=== PATIENT | male | born 1985 | race Caucasian/White ===

== ENCOUNTER 2018-09-09 11:41 | Emergency (ER) | payer SELFPAY ==
[2018-09-09] MEDS ORDERED: AMOXICILLIN TR/POT CLAVULANATE 500-125 MG TAB PO ONE (13:17)
[2018-09-09] MEDS ORDERED: AMOXICILLIN TRIHYD 250 MG CAPSULE PO ONE (13:18)
[2018-09-09] MEDS ORDERED: ACETAMINOPHEN 325 MG TABLET PO ONE (13:18)
--- NOTE | 2018-09-09 13:21 | ER Document Report ---
ED Animal Bite - General Chief Complaint: Dog Bite Stated Complaint: DOG BITE Time Seen by Provider: 09/09/18 12:49 Mode of Arrival: Ambulatory Information source: Patient Notes: 33-year-old male presented to ED for complaint of a dog bite about 30 minutes before coming to the emergency room. 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 He states another dog came up and acted like he wanted biting to but he only has one bite danya on his right calf. He states the dog hair spring cutter told him is sorry and went into the house did not tell him whether the shots were up-to-date or not. Bleeding is under control. Patient states that his tetanus was last in January 2018. Patient states he is living in a motel just doing jobs. He is alert oriented respirations regular and unlabored speaking in full sentences. He states his only past medical history is depression. He states he is new to the area and does not have a primary care doctor as yet. TRAVEL OUTSIDE OF THE [place] IN LAST 30 DAYS: No - HPI Location of injury: Other - Right calf Severity of injury: Bitten Onset: Just prior to arrival Quality of pain: Sharp Pain Level: 5 Severity: Severe Context of attack: "Unprovoked" attack, Entered animal's domain Type of animal: Dog Appearance of animal: Appeared ill Animal's immunizations: Unknown Animal control form completed: Yes - Related Data Allergies/Adverse Reactions: No Known Allergies Allergy (Unverified 09/09/18 11:42) Past Medical History - General Information source: Patient - Social History Smoking Status: Current Every Day Smoker Cigarette use (# per day): Yes - Half pack a day Chew tobacco use (# tins/day): No Smoking Education Provided: Yes - 4 minutes Frequency of alcohol use: None Drug Abuse: None Occupation: Odd jobs Lives with: Alone - [place] Family History: Reviewed & Not Pertinent Patient has suicidal ideation: No Patient has homicidal ideation: No - Past Medical History Cardiac Medical History: Reports: None Pulmonary Medical History: Reports: None EENT Medical History: Reports: None Neurological Medical History: Reports: None Endocrine Medical History: Reports: None Renal/ Medical History: Reports: None Malignancy Medical History: Reports None GI Medical History: Reports: None Musculoskeletal Medical History: Reports None Skin Medical History: Reports None Psychiatric Medical History: Reports: Hx Depression Traumatic Medical History: Reports: None Infectious Medical History: Reports: None Surgical Hx: Negative Past Surgical History: Reports: None - Immunizations Immunizations up to date: Yes Hx Diphtheria, Pertussis, Tetanus Vaccination: Yes - Patient states January 2018 Review of Systems - Review of Systems Constitutional: No symptoms reported EENT: No symptoms reported Cardiovascular: No symptoms reported Respiratory: No symptoms reported Gastrointestinal: No symptoms reported Genitourinary: No symptoms reported Male Genitourinary: No symptoms reported Musculoskeletal: No symptoms reported Skin: Other - Dog bite to the right calf Hematologic/Lymphatic: No symptoms reported Neurological/Psychological: No symptoms reported -: Yes All other systems reviewed and negative Physical Exam - Vital signs Vitals: Temp Pulse Resp BP Pulse Ox 97.5 F 91 17 113/63 96 09/09/18 11:45 09/09/18 11:45 09/09/18 11:45 09/09/18 11:45 09/09/18 11:45 Interpretation: Normal - General General appearance: Appears well, Alert - HEENT Head: Normocephalic, Atraumatic Eyes: Normal Pupils: PERRL - Respiratory Respiratory status: No respiratory distress Chest status: Nontender Breath sounds: Normal Chest palpation: Normal - Cardiovascular Rhythm: Regular Heart sounds: Normal auscultation Murmur: No - Abdominal Inspection: Normal Distension: No distension Bowel sounds: Normal Tenderness: Nontender Organomegaly: No organomegaly - Back Back: Normal, Nontender - Extremities General upper extremity: Normal inspection, Nontender, Normal color, Normal ROM, Normal temperature General lower extremity: Normal color, Normal ROM, Normal temperature, Normal weight bearing. No: Ruby's sign Calf: Tender, Abrasion, Laceration - Mild dog bite to the right calf no active bleeding. No: Deformity, Ecchymosis, Instability, Unable to bear weight - Neurological Neuro grossly intact: Yes Cognition: Normal Orientation: AAOx4 [place] Coma Scale Eye Opening: Spontaneous [place] Coma Scale Verbal: Oriented [place] Coma Scale Motor: Obeys Commands Kaj[place] Coma Scale Total: 15 Speech: Normal Motor strength normal: LUE, RUE, LLE, RLE Sensory: Normal - Psychological Associated symptoms: Normal affect, Normal mood - Skin Skin Temperature: Warm Skin Moisture: Dry Skin Color: Normal Course - Re-evaluation Re-evalutation: 09/09/18 13:30 Patient was treated with Augmentin. Patient states his last tetanus was in January of 2018 he was treated with Tylenol and Augmentin in the emergency room discharged home with a prescription for Augmentin. He stated he would rather Tylenol and ibuprofen. Patient was given instructions on cleaning the bite with soap and water and applying bacitracin and Band-Aid. This was done while in the emergency room. Patient was discharged home with instructions to follow-up with animal control. - Vital Signs Vital signs: Temp Pulse Resp BP Pulse Ox 98.2 F 74 16 121/61 100 09/09/18 13:37 09/09/18 13:37 09/09/18 13:37 09/09/18 13:37 09/09/18 13:37 Discharge - Discharge Clinical Impression: Dog bite of right calf Qualifiers: Encounter type: initial encounter Qualified Code(s): S81.851A - Open bite, right lower leg, initial encounter Condition: Stable Disposition: HOME, SELF-CARE Instructions: Family Physicians / Practices Additional Instructions: Animal Bites Animal bites are often heavily contaminated with bacteria. In spite of thorough cleansing and proper treatment, these wounds frequently become infected. Bite wounds of the hands are especially prone to complications. Bites are dressed, if possible. Large wounds may require suturing after internal cleansing. Because of infection risk, some large wounds must remain unstitched. Your doctor is trained to advise you on the best treatment for your bite. Call the doctor at once if the wound becomes red, swollen, warm, increasingly painful, or if it begins to drain. Danger signs also include red streaks up the involved extremity, swollen glands in the groin or under the arm, or fever and chills. The risk of rabies from domestic animals is very low. Bats, sick animals, and wild animals may expose you to rabies. The physician, or the health department, will inform you if you will need to receive the rabies vaccine. Augmentin Augmentin is a mixture of amoxicillin and clavulanate. Amoxicillin is a member of the penicillin family. It covers the germs likely to cause ear, bronchial, and urinary infections better than plain penicillin. The addition of clavulanate allows it to cover staph infections of the skin, as well as resistant cases of ear and sinus infections. Your physician has chosen Augmentin for you because of the special nature of your situation. Augmentin is best taken with meals. Nausea after taking the medication is rare, but can occur. Diarrhea can occur, particularly in small children. Vaginal yeast infections, and oral thrush in infants are also common. Contact your physician if these problems occur. Allergy to penicillins is common. If you have had an allergic reaction to any drug of the penicillin family, you should never take any other penicillin. Notify your doctor at once if you develop hives, shortness of breath, swelling, or faintness. Acetaminophen Acetaminophen may be taken for pain relief or fever control. It's much safer than aspirin, offering a wider range of "safe" dosages. It is safe during . Some brand names are Tylenol, Panadol, Datril, Anacin 3, Tempra, and Liquiprin. Acetaminophen can be repeated every four hours. The following are maximum recommended dosages: WEIGHT Dose Drops Elixir Chewable(80mg) (LBS.) drprs=droppers tsp=teaspoon 6 40 mg .4 ml (1/2) 6-11 80 mg .8 ml (full) 1/2 tsp 1 tab 12-16 120 mg 1 1/2 drprs 3/4 tsp 1 1/2 tabs 17-23 160 mg 2 drprs 1 tsp 2 tabs 24-30 240 mg 3 drprs 1 1/2 tsp 3 tabs 30-35 320 mg 2 tsp 4 tabs 36-41 360 mg 2 1/4 tsp 4 1/2 tabs 42-47 400 mg 2 1/2 tsp 5 tabs 48-53 480 mg 3 tsp 6 tabs 54-59 520 mg 3 1/4 tsp 6 1/2 tabs 60-64 560 mg 3 1/2 tsp 7 tabs 65-70 600 mg 3 3/4 tsp 7 1/2 tabs 71-76 640 mg 4 tsp 8 tabs 77-82 720 mg 4 1/2 tsp 9 tabs 83-88 800 mg 5 tsp 10 tabs >89 pounds or adults 650 mg to 900 mg Acetaminophen can be repeated every four hours. Maximum daily dose not to exceed 4000 mg. These maximum recommended dosages are slightly higher than the dosages written on the product container, but these dosages are very safe and well below the toxic dosage for acetaminophen. Ibuprofen Ibuprofen is an excellent, safe drug for pain control. In addition, it has potent antiinflammatory effects which are beneficial, especially in the treatment of injuries, arthritis, or tendonitis. It's best to take ibuprofen with food. Persons with ulcer disease or allergy to aspirin should notify their physician of this before taking ibuprofen. Take the medication exactly as prescribed. Don't take additional doses unless instructed to do so by your doctor. If you develop wheezing, shortness of breath, hives, faintness, stomach pain, vomiting, or dark black stools, return for re-evaluation at once. NON-SUTURED LACERATION: Your laceration did not require suturing. Some lacerations cannot be sutured because of increased infection risk, while others simply don't need stitches because they are shallow or very short. Your injury should be protected while it heals. Usually complete healing takes 10 to 14 days. Keep the dressing clean and dry, and change it every day. If you notice increasing pain, redness, swelling, drainage, or tender lumps in the armpit or groin above the injury, infection may be present. You should call the doctor at once. SOAP CLEANSING: Gently wash the wound daily using a mild soap (like Ivory, Phisoderm, Neutrogena). Use warm water, rubbing gently until all debris, ooze, and crusting have been washed from the wound. Allow to dry briefly (about 10 minutes) after cleaning. Repeat this cleansing at least three times a day for the first two days and then once or twice a day. ANTIBIOTIC OINTMENT PROTECTION: Your wounds are such that dressing them is not practical or optional. After cleansing, you should apply a thin coating of antibiotic ointment (Bacitracin, not Neosporin) to the wounds at least three times daily. This lessens infection risk, and may decrease the amount of scarring. Use a q-tip or dull butter knife, not your finger, to apply this ointment. Any debris or ooze which builds up in the ointment should be gently rubbed off with a sterile gauze pad. Harder crusting may need to be gently scrubbed off with a clean wash cloth with soap and warm water, perhaps applying a warm, wet wash cloth to the wound for ten minutes first. Development of redness, severe itching, or blistering may mean allergy to the ointment. See the doctor. FOLLOW-UP CARE: Please return in __3___ days for an infection check and dressing change. If you have been referred to another physician for follow-up care, call that physicians office for an appointment as you were instructed. If you experience a significant change in your laceration, or if you are concerned there may be an infection (swelling, redness, drainage, increasing tenderness, red streaks, tender lumps in the armpit or groin above the laceration, or fever), return to the Emergency Department immediately re-evaluation. Prescriptions: Amox Tr/Potassium Clavulanate [Augmentin 875-125 Tablet] 1 tab PO BID 10 Days tablet Forms: Smoking Cessation Education, Return to Work
[2018-09-09 13:39] VITALS: BP 121/61
== END 2018-09-09 13:37 | disposition home or self-care (01) ==
LOC: ER 11:41
DX: S81.851A Open bite, right lower leg, initial encounter (principal); W54.0XXA Bitten by dog, initial encounter; Y93.89 Activity, other specified; Y92.007 Garden or yard of unspecified non-institutional (private) residence as the place of occurrence of the external cause; Y99.0 Civilian activity done for income or pay; F17.210 Nicotine dependence, cigarettes, uncomplicated; Z71.6 Tobacco abuse counseling
CPT/HCPCS: 99283; J3490

== ENCOUNTER 2018-11-07 17:45 | Emergency (ER) | payer SELFPAY ==
--- NOTE | 2018-11-07 18:13 | ER Document Report ---
ED Medical Screen (RME) - General Chief Complaint: Chest Pain Stated Complaint: CHEST PAIN Time Seen by Provider: 11/07/18 18:09 Notes: Patient says he is hurting in his left upper chest for about an hour since knocking off work. 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 He does remember that he used some methamphetamine with a girl 2 nights ago and he thinks that drug is messing him up. This afternoon, he felt like he was going to be blacking out. [place] like he was overheated. Took a cold soda and reported all over himself, as well as drinking some of it. Patient says he has not slept or had anything to eat or drink for 2 days. Patient says he has some mental conditions for which she was on medications. He says he is been diagnosed as depression and PTSD. He has not taken any mental health medications for 3 months. EKG shows a sinus rhythm at 92. The EKG is otherwise normal. TRAVEL OUTSIDE OF THE [place] IN LAST 30 DAYS: No - Related Data Allergies/Adverse Reactions: No Known Allergies Allergy (Unverified 09/09/18 11:42) Past Medical History Renal/ Medical History: Denies: Hx Peritoneal Dialysis Psychiatric Medical History: Reports: Hx Depression - Immunizations Immunizations up to date: Yes Hx Diphtheria, Pertussis, Tetanus Vaccination: Yes - Patient states January 2018
[2018-11-07] MEDS ORDERED: NORMAL SALINE 1000 ML 1,000 ML IV ONE (18:32)
[2018-11-07 19:10] LABS: ABSOLUTE BASOPHILS # (AUTO) 0.1 10^3/uL (0.0-0.2); ABSOLUTE EOSINOPHILS # (AUTO) 0.1 10^3/uL (0.0-0.6); ABSOLUTE LYMPHOCYTES (AUTO) 1.5 10^3/uL (0.5-4.7); ABSOLUTE MONOCYTES (AUTO) 0.7 10^3/uL (0.1-1.4); ABSOLUTE NEUT (AUTO) 7.5 10^3/uL (1.7-8.2); BASOPHILS % (AUTO) 0.6 % (0-2); EOSINOPHILS % (AUTO) 0.7 % (0-6); HEMATOCRIT 45.4 % (37.9-51.0); HEMOGLOBIN 15.5 g/dL (13.5-17.0); LYMPHOCYTES % (AUTO) 15.4 % (13-45); MEAN CORPUSCULAR HEMOGLOBIN 29.2 pg (27.0-33.4); MEAN CORPUSCULAR HGB CONC 34.1 g/dL (32.0-36.0); MEAN CORPUSCULAR VOLUME 86 fl (80-97); MONOCYTES % (AUTO) 7.2 % (3-13); PLATELET COUNT 334 10^3/uL (150-450); SEGMENTED NEUTROPHILS % (AUTO) 76.1 % (42-78); TOTAL CELLS COUNTED % (AUTO) 100 %; WHITE BLOOD COUNT 9.8 10^3/uL (4.0-10.5)
[2018-11-07 19:14] LABS: APPEARANCE,URINE CLOUDY; BILIRUBIN,URINE NEGATIVE (NEGATIVE); GLUCOSE, URINE NEGATIVE (NEGATIVE); KETONES,URINE NEGATIVE (NEGATIVE); LEUKOCYTE ESTERASE,URINE NEGATIVE (NEGATIVE); NITRITE,URINE NEGATIVE (NEGATIVE); PROTEIN,URINE NEGATIVE (NEGATIVE); URINE SPECIFIC GRAVITY 1.028; UROBILINOGEN,URINE NEGATIVE mg/dL (<2.0)
[2018-11-07 19:15] LABS: COLOR,URINE YELLOW
[2018-11-07 19:21] LABS: ALANINE AMINOTRANSFERASE 28 U/L (21-72); ALBUMIN 5.4 g/dL (3.5-5.0); ALKALINE PHOSPHATASE 105 U/L (38-126); ANION GAP 15 (5-19); ASPARTATE AMINO TRANSFERASE 73 U/L (17-59); BILIRUBIN,DIRECT 0.7 mg/dL (0.0-0.4); BILIRUBIN,TOTAL 1.9 mg/dL (0.2-1.3); BLOOD UREA NITROGEN 49 mg/dL (7-20); CALCIUM 10.9 mg/dL (8.4-10.2); CARBON DIOXIDE 28 mmol/L (22-30); CHLORIDE 97 mmol/L (98-107); CREATINE KINASE 830 U/L (55-170); GLUCOSE 91 mg/dL (75-110); LIPASE 67.6 U/L (23-300); POTASSIUM 4.7 mmol/L (3.6-5.0); SODIUM 140.3 mmol/L (137-145); TOTAL PROTEIN 10.3 g/dL (6.3-8.2)
[2018-11-07 19:28] LABS: URINE BARBITURATES SCREEN NEGATIVE; URINE BENZODIAZEPINES SCREEN NEGATIVE; URINE METHADONE SCREEN NEGATIVE; URINE PHENCYCLIDINE SCREEN NEGATIVE
[2018-11-07 19:32] LABS: TROPONIN I < 0.012 ng/mL
[2018-11-07 19:56] LABS: URINE COCAINE SCREEN UNCONFIRMED POSITIVE; URINE MARIJUANA (THC) SCREEN UNCONFIRMED POSITIVE
--- NOTE | 2018-11-07 20:26 | ER Document Report ---
ED General - General Chief Complaint: Chest Pain Stated Complaint: CHEST PAIN Time Seen by Provider: 11/07/18 18:09 Notes: Patient says he is hurting in his left upper chest for about an hour since knocking off work. 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 He does remember that he used some methamphetamine with a girl 2 nights ago and he thinks that drug is messing him up. This afternoon, he felt like he was going to be blacking out. [place] like he was overheated. Took a cold soda and reported all over himself, as well as drinking some of it. Patient says he has not slept or had anything to eat or drink for 2 days. Patient says he has some mental conditions for which she was on medications. He says he is been diagnosed as depression and PTSD. He has not taken any mental health medications for 3 months. EKG shows a sinus rhythm at 92. The EKG is otherwise normal. TRAVEL OUTSIDE OF THE [place] IN LAST 30 DAYS: No - Related Data Allergies/Adverse Reactions: No Known Allergies Allergy (Unverified 09/09/18 11:42) Past Medical History - Social History Smoking Status: Current Every Day Smoker Family History: Reviewed & Not Pertinent Patient has suicidal ideation: No Patient has homicidal ideation: No Psychiatric Medical History: Reports: Hx Depression - Immunizations Immunizations up to date: Yes Hx Diphtheria, Pertussis, Tetanus Vaccination: Yes - Patient states January 2018 Review of Systems - Review of Systems Notes: REVIEW OF SYSTEMS: CONSTITUTIONAL : Denies fever. EENT: Denies eye, ear, nose or mouth or throat pain or other symptoms. CARDIOVASCULAR: Denies chest pain. RESPIRATORY: Denies cough, chest congestion, or shortness of breath. GASTROINTESTINAL: Denies abdominal pain or nausea, vomiting, or diarrhea. GENITOURINARY: Denies difficulty or painful urinating, urinary frequency, blood in urine. MUSCULOSKELETAL: Denies back or neck pain. Denies joint pain or swelling. SKIN: Denies rash or skin lesions. NEUROLOGICAL: Denies LOC or altered mental status. Denies headache. Denies sensory loss or motor deficits. ALL OTHER SYSTEMS REVIEWED AND NEGATIVE. Physical Exam - Vital signs Vitals: Temp Pulse Resp BP Pulse Ox 98 F 112 H 18 131/79 H 98 11/07/18 18:00 11/07/18 18:00 11/07/18 18:00 11/07/18 18:00 11/07/18 18:00 Interpretation: Tachycardic Notes: PHYSICAL EXAMINATION: GENERAL: Well-appearing, in no acute distress. Anxious, slightly tachycardic. HEAD: Atraumatic, normocephalic. EYES: Pupils equal round and reactive to light, extraocular movements intact. ENT: oropharynx clear without exudates. Moist mucous membranes. NECK: Normal range of motion, supple. LUNGS: Breath sounds clear and equal bilaterally. HEART: Regular rate and rhythm without murmurs. Heart rate about 100 at the bedside by me. ABDOMEN: Soft, nontender. No guarding or rebound. No masses. BACK: No tenderness throughout entire back. EXTREMITIES: Normal range of motion without pain. NEUROLOGICAL: Normal speech, normal gait. Normal sensory, motor, and reflex exams. Awake, alert, and oriented x3. Cranial nerves normal. PSYCH: Normal mood, normal affect. Numerous small scratches with some swelling on hands and forearms.. Does not look like any pustules or gross infection. Course - Re-evaluation Re-evalutation: 11/07/18 20:32 Patient was apparently having cramps so I gave him a liter of saline and he had marked improvement in his cramping. He feels much better and wishes to go home. He did inquire of the nursing staff about referral to detox. He denied being suicidal. I told him that the mental health people are gone for the evening but would be here in the morning if you wish to call back for information about detox. Patient adamantly denies being suicidal. Repeatedly said he is not suicidal. Went over the patient's labs with him. Pointed out his elevated CPK and his elevated renal function. Pointed out to him the danger of amphetamine usage. - Vital Signs Vital signs: Temp Pulse Resp BP Pulse Ox 97.9 F 90 18 144/85 H 100 11/07/18 20:26 11/07/18 20:26 11/07/18 20:26 11/07/18 20:26 11/07/18 20:26 - Laboratory Result Diagrams: 11/07/18 18:18 11/07/18 18:18 Laboratory results interpreted by me: 11/07/18 11/07/18 18:18 18:18 Chloride 97 L BUN 49 H Creatinine 1.74 H Est GFR ( Amer) 55 L Est GFR (Non-Af Amer) 46 L Calcium 10.9 H Total Bilirubin 1.9 H Direct Bilirubin 0.7 H AST 73 H Creatine Kinase 830 H CK-MB (CK-2) 6.30 H Total Protein 10.3 H Albumin 5.4 H Discharge - Discharge Clinical Impression: Dehydration, Elevated CPK, Substance abuse Condition: Stable Disposition: HOME, SELF-CARE Additional Instructions: Dehydration Dehydration can result from vomiting or diarrhea, fever, or decreased intake of fluids. If severe, hospitalization and intravenous fluids may be required. Most cases are treated at home with fluids by mouth. For the next 24 hours, drink lots of clear fluids. In mild cases, this can be soda pop or sports drinks. For more severe dehydration, the doctor may recommend special fluids such as Pedialyte or Lytren. Try to get three liters (3 quarts) of fluid per day. If vomiting occurs, continue to drink the fluids frequently (every 15 to 20 minutes), but in small amounts (one or two ounces). Depending on the type of dehydration, the doctor may prescribe antinausea medicine or potassium replacements. Call the doctor or return for re-examination if you become progressively weak, vomit repeatedly, or have other new symptoms. Your creatinine phosphokinase or CPK is elevated which is probably related to your physical activity at work as well as your use of the methamphetamine. The treatment is to drink plenty of fluids and flush it out of your system. Intravenous (IV) Fluids As part of your care today, you received intravenous (IV) fluids. IV fluids are administered to patients who are dehydrated or to those who have certain chemical (electrolyte) abnormalities that need correcting. AMPHETAMINE / METHAMPHETAMINE ABUSE: Amphetamines are addicting stimulants. Amphetamines overstimulate the nervous system and give a false feeling of power and mastery. These drugs may be obtained as prescription pills for weight loss, narcolepsy, or attention-deficit disorder. More often they're bought as an illegal street drug, methamphetamine (crank, crystal, speed). Using amphetamines repeatedly can lead to serious medical problems including malnutrition, severe depression, and paranoia. It can take increasing amounts to feel good. Eventually, there will be a "burn out." When you go off amphetamines there is a period of depression that may last for weeks or even months. High doses of amphetamines can cause seizures, confusion, hallucinations, delusions, high blood pressure, muscle damage, heart damage, or sudden . Many times these deadly complications occur even with "normal" doses. Injection of amphetamines is risky for developing abscesses, endocarditis (heart infection), pneumonia, and AIDS. Withdrawal from amphetamines often causes anxiety, depression, and drug cravings. Some users become paranoid and psychotic. There may be cramps, nausea, and vomiting. Many treatment programs are available, but you must make the decision to qu it. Medication can be prescribed to control the symptoms of amphetamine toxicity (beta blockers or benzodiazepines). Withdrawal symptoms may require tranquilizers. OVERDOSE / INGESTION: You have taken more medication than you should have. After your evaluation and care, it is felt that your overdose is not likely to be harmful or of any significant consequences to you and you are being discharged. In the future, you should be careful not to take more medications than what is prescribed for you. Although your overdose does not seem to be of any danger to you at this time, if you develop any unusual or unexpected symptoms after your discharge, you should return to the Emergency Department immediately for re-evaluation. INSTRUCTIONS FOR HOME CARE FOLLOWING DRUG OVERDOSAGE: The doctor feels it's safe for you to go home. You will need to be observed. If charcoal and a laxative was given to you, expect some loose black stools soon. Take no medications unless approved by a physician, including alcohol. If drowsy, lie on your stomach or side for sleeping to avoid aspiration if vomiting occurs. Take only liquids by mouth until there is no more nausea. FOR THE OBSERVER: Observe the patient for the next 24 hours and call or go to the hospital if any of the following are noted: prolonged or repeated vomiting, difficulty in arousing, convulsions (seizures or fits), fever, persistent cough, breathing that is too slow or too rapid, or confused or bizarre behavior. If a counselling visit has been arranged, make sure the patient attends. Call the physician or poison control if you have questions. FOLLOW-UP CARE: If you have been referred to a physician for follow-up care, call the physicians office for an appointment as you were instructed or within the next two days. If you experience worsening or a significant change in your symptoms, notify the physician immediately or return to the Emergency Department at any time for re-evaluation.
[2018-11-07 20:27] VITALS: BP 144/85
--- NOTE | 2018-11-07 22:01 | EKG REPORT ---
SEVERITY:- BORDERLINE ECG - SINUS RHYTHM BORDERLINE PROLONGED QT INTERVAL : Confirmed by: Alex Mccoy 07-Nov-2018 22:00:43
== END 2018-11-07 20:33 | disposition home or self-care (01) ==
LOC: ER 17:45
DX: E86.0 Dehydration (principal); R79.89 Other specified abnormal findings of blood chemistry; F19.10 Other psychoactive substance abuse, uncomplicated; R07.9 Chest pain, unspecified; F17.200 Nicotine dependence, unspecified, uncomplicated
CPT/HCPCS: 93005; 99284; 96360; 96361; 36415; 82553; 82550; 83690; 85025; 80053; 81001; 84484; 80307; 93010; J7030

== ENCOUNTER 2018-12-31 00:37 | Emergency (ER) | payer SELFPAY ==
[2018-12-31] MEDS ORDERED: FLUOXETINE HCL 20 MG CAPSULE PO ONE (02:19)
[2018-12-31] MEDS ORDERED: GABAPENTIN 300 MG CAPSULE PO ONE (02:20)
[2018-12-31] MEDS ORDERED: ONDANSETRON ODT 4 MG TAB (6 TAB/ER DISP) PO PRN (02:20)
--- NOTE | 2018-12-31 02:25 | ER Document Report ---
ED General - General Chief Complaint: Drug Abuse Stated Complaint: DRUG WITHDRAWS Time Seen by Provider: 12/31/18 02:04 Notes: Patient is a 33-year-old male with a history of opiate abuse. He says that he has a history of heroin use. Recently he has been using heroin but found out later that was fentanyl. He is trying to quit. He says that he took a Subtex tablet this morning that was given to him by a friend. He says he went into withdrawal after taking it. He then waited this evening till he started having withdrawal symptoms and then took 1 and now he feels very well and no longer feels as if he is in withdrawal. He says he used to be on Prozac. He says this helps control his depression and PTSD and typically when he is on this he does not go to towards using opiates as much. He says he does not have insurance and therefore has been unable to get into a doctor and therefore has not been on his medicine. He currently feels well since taking the Subutex. He has no further concerns or complaints. Denies any redness or swelling to his arms or hands from injecting. Denies any recent fevers or infections. No other complaints at this time. TRAVEL OUTSIDE OF THE [place] IN LAST 30 DAYS: No - Related Data Allergies/Adverse Reactions: No Known Allergies Allergy (Unverified 09/09/18 11:42) Past Medical History - Social History Smoking Status: Unknown if Ever Smoked Frequency of alcohol use: Occasional Drug Abuse: Heroin, Prescription drugs Family History: Reviewed & Not Pertinent Renal/ Medical History: Denies: Hx Peritoneal Dialysis Psychiatric Medical History: Reports: Hx Depression - Immunizations Immunizations up to date: Yes Hx Diphtheria, Pertussis, Tetanus Vaccination: Yes - Patient states January 2018 Review of Systems - Review of Systems Notes: My Normal Review Basic REVIEW OF SYSTEMS: CONSTITUTIONAL : Denies fever, chills, or sweats. Denies recent illness. EENT: Denies eye, ear, throat, or mouth pain or symptoms. Denies nasal or sinus congestion. CARDIOVASCULAR: Denies chest pain. RESPIRATORY: Denies cough, cold, or chest congestion. Denies shortness of breath, difficulty breathing, or wheezing. GASTROINTESTINAL: Denies abdominal pain. Vomiting during withdrawal MUSCULOSKELETAL: Muscle aches during withdrawal SKIN: Denies rash or skin lesions. NEUROLOGICAL: Denies altered mental status or loss of consciousness. Denies headache. Denies weakness or paralysis or loss of use of either side. Denies problems with gait or speech. Denies sensory or motor loss. PSYCHIATRIC: Street of PTSD. ALL OTHER SYSTEMS REVIEWED AND NEGATIVE. Physical Exam - Vital signs Vitals: Temp Pulse Resp BP Pulse Ox 98.4 F 66 20 149/84 H 100 12/31/18 00:57 12/31/18 00:57 12/31/18 00:57 12/31/18 00:57 12/31/18 00:57 - Notes Notes: General Appearance: Well nourished, alert, cooperative, no acute distress, no obvious discomfort. Well-appearing. Vitals: reviewed, See vital signs table. Head: no swelling or tenderness to the head Eyes: PERRL, EOMI, Conjuctiva clear Mouth: No decreasd moisture Throat: No tonsillar inflammation, No airway obstruction, No lymphadenopathy Lungs: No wheezing, No rales, No rhonci, No accessory muscle use, good air exchange bilaterally. Heart: Normal rate, Regular rythm, No murmur, no rub Abdomen: Normal BS, soft, No rigidity, No abdominal tenderness, No guarding, no rebound, no abdominal masses, no organomegaly Extremities: good pulses in all extremities, no swelling or tenderness in the extremities, no edema. Skin: warm, dry, appropriate color, no rash Neuro: speech clear, oriented x 3, normal affect, responds appropriately to questions. Course - Re-evaluation Re-evalutation: 12/31/18 06:30 Patient currently looks very well. This is likely because he took the Subutex when he was started have withdrawal symptoms. I informed him that if he takes it for is having withdrawal then I will actually put him into withdrawal make him feel terrible. This is what happened to him proximate 12 hours ago when he had taken it before. He said that he only did take a small piece this evening to get out withdrawal. I informed him that he can do that but can only do it when he is having withdrawal symptoms. I will give him other medications such as Neurontin to help prevent and blunts the symptoms of withdrawal. He says he is used Neurontin in the past and it was very helpful for him. I also prescribed him his Prozac as he says when his PTSD is controlled with the Prozac he is much less likely to be attempted to go back to using opiates. I informed him to follow-up with port. I encouraged him return to ER if he has recurrent worsening of his symptoms or if he feels unwell. Patient agrees with plan will be discharged home. Dictation of this chart was performed using voice recognition software; therefore, there may be some unintended grammatical errors. - Vital Signs Vital signs: Temp Pulse Resp BP Pulse Ox 98.0 F 93 18 129/90 H 99 12/31/18 03:04 12/31/18 03:04 12/31/18 03:04 12/31/18 03:04 12/31/18 03:04 Discharge - Discharge Clinical Impression: Opiate withdrawal Disposition: HOME, SELF-CARE Additional Instructions: It is okay to take the Subutex that you have when you are actively having withdrawal. Please continue to take just half a tablet to help prevent going further into withdrawal. I have also prescribed a medicine such as Neurontin. Take as prescribed. Do not take more than prescribed. Make sure you taper it as it is prescribed to do so. You can take more than prescribed this can cause difficulty breathing or increasing sleepiness which is dangerous. Please return to the ER if you have intractable vomiting, severe withdrawal not improving with medication, or if you feel unwell. Please try to follow-up with [facility] human services in regards to continued prescribing of her medications. Please return to the ER for reevaluation if you are running out of your Prozac so that he can be represcribed before urinalysis he did not develop any withdrawal symptoms. Prescriptions: Fluoxetine HCl [Prozac 20 mg Capsule] 20 mg PO DAILY #30 capsule RX: Gabapentin [Neurontin 100 mg Capsule] 100 mg PO ASDIR PRN #54 capsule PRN Reason: Ondansetron [Zofran Odt 4 mg Tablet] 1 tab PO Q4H PRN #15 tab.rapdis PRN Reason: For Nausea/Vomiting
[2018-12-31 03:20] VITALS: BP 129/90
== END 2018-12-31 03:19 | disposition home or self-care (01) ==
LOC: ER 00:37
DX: F11.23 Opioid dependence with withdrawal (principal)
CPT/HCPCS: 99284

== ENCOUNTER 2018-12-31 20:12 | Emergency (ER) | payer SELFPAY ==
[2018-12-31 20:59] VITALS: BP 150/84
[2019-01-01] MEDS ORDERED: CLONIDINE 0.1 MG/24 HR PATCH.TDWK TD ONE (00:08)
--- NOTE | 2019-01-01 00:13 | ER Document Report ---
ED General - General Chief Complaint: Medication Refill Stated Complaint: MED REFILL Time Seen by Provider: 12/31/18 23:59 Mode of Arrival: Ambulatory Information source: Patient TRAVEL OUTSIDE OF THE [place] IN LAST 30 DAYS: No - HPI Patient complains to provider of: Symptoms of opiate withdrawal Onset: Yesterday Onset/Duration: Constant, Persistent Quality of pain: No pain Severity: Severe Pain Level: 5 Associated symptoms: None Exacerbated by: Denies Relieved by: Denies Similar symptoms previously: No Recently seen / treated by doctor: No Notes: 33-year-old male with history of heroin addiction trying to get off the heroin. Came in last night. Was given prescriptions for Prozac, Neurontin, and Zofran. Came in tonight saying that he lost his prescriptions for all 3. Requesting refills. - Related Data Allergies/Adverse Reactions: No Known Allergies Allergy (Verified 12/31/18 20:42) Past Medical History - General Information source: Patient - Social History Smoking Status: Current Every Day Smoker Family History: Reviewed & Not Pertinent Renal/ Medical History: Denies: Hx Peritoneal Dialysis Psychiatric Medical History: Reports: Hx Depression - Immunizations Immunizations up to date: Yes Hx Diphtheria, Pertussis, Tetanus Vaccination: Yes - Patient states January 2018 Review of Systems - Review of Systems Notes: Constitutional: No fevers. No chills. EENT: No eye redness. No eye pain. No ear pain. No sore throat. Cardiovascular: No chest pain. No palpitations. Respiratory: No cough. No shortness of breath. No respiratory distress. Gastrointestinal: No abdominal pain. Positive nausea Genitourinary: Atraumatic. No lesions. No pain. No discharge. Musculoskeletal: Atraumatic. No swelling. No deformities. Skin: No rash or lesions. Lymphatic: No swollen lymph nodes. Neurologic: No headache. No syncope. Psychiatric: No suicidal or homicidal ideation. Positive anxiety, positive insomnia Physical Exam - Vital signs Vitals: Temp Pulse Resp BP Pulse Ox 98.8 F 111 H 16 150/84 H 98 12/31/18 20:58 12/31/18 20:58 12/31/18 20:58 12/31/18 20:58 12/31/18 20:58 - Notes Notes: General: Well-developed, well-nourished. In no acute distress. Non-toxic appearing. Cardiac: Well-perfused. Regular rate and rhythm. No murmurs, rubs, or gallops. Pulmonary: No respiratory distress. No cyanosis. Bilateral lung fiels are clear to auscultation. Abdominal: Non-distended. Non-rigid. Bowels sounds are present in all four quadrants. No guarding or rebound. HEENT: Head is atraumatic. Conjunctivae not reddened. No tearing. PERRL. EOMI. Orbits atraumatic. No periorbital swelling or erythema. Oropharynx is without erythema, swelling, or exudates. Neck: Supple. No adenopathy. No meningismus. Dermatologic: Warm with good turgor. No rash. Atraumatic. Chest: Atraumatic. No chest wall tenderness to palpation. Musculoskeletal: Moves all extremities well. No range of motion deficits. no muscular or joint tenderness. No paraspinal muscle tenderness. no midline spinal tenderness or step-off. Genitourinary: Examination deferred Neurologic: No gross neurologic deficits. Psychiatric: Normal mood. No suicidal or homicidal ideation Course - Re-evaluation Re-evalutation: 01/01/19 00:[address] Gordon. He said not refill any Neurontin. Can refill Prozac. Refill Zofran. Can give the patient a clonidine patch - Vital Signs Vital signs: Temp Pulse Resp BP Pulse Ox 98.8 F 111 H 16 150/84 H 98 12/31/18 20:58 12/31/18 20:58 12/31/18 20:58 12/31/18 20:58 12/31/18 20:58 Discharge - Discharge Clinical Impression: Opioid withdrawal Condition: Good Disposition: HOME, SELF-CARE Additional Instructions: The patch placed on your arm should help with your symptoms. Continue Prozac, continue Zofran as needed for nausea. Unfortunately we are needed able to refill your Neurontin this evening. Please follow up in the [facility] for further treatment. Prescriptions: Fluoxetine HCl [Prozac 20 mg Capsule] 20 mg PO DAILY #14 capsule Ondansetron [Zofran Odt 4 mg Tablet] 1 - 2 tab PO Q4H PRN #15 tab.rapdis PRN Reason: For Nausea/Vomiting Referrals: [facility] [Provider Group] - Follow up as needed
== END 2019-01-01 00:37 | disposition home or self-care (01) ==
LOC: ER 20:12
DX: Z76.0 Encounter for issue of repeat prescription (principal); F11.23 Opioid dependence with withdrawal
CPT/HCPCS: 99281; J3490

== ENCOUNTER 2019-01-10 15:03 | Emergency (ER) | payer SELFPAY ==
[2019-01-10] MEDS ORDERED: BUPIVACAINE HCL 0.5 % INJ/PF 30 ML SDV INJ ONE (15:27)
--- NOTE | 2019-01-10 15:39 | ER Document Report ---
ED Medical Screen (RME) - General Chief Complaint: Hand Injury Stated Complaint: HAND INJURY Time Seen by Provider: 01/10/19 15:23 Mode of Arrival: Ambulatory Information source: Patient TRAVEL OUTSIDE OF THE [place] IN LAST 30 DAYS: No - HPI Patient complains to provider of: RIGHT RING FINGER INJURY Notes: 01/10/19 15:29 Patient here with right ring finger injury. He was carrying a heavy piece of tree when his friend dropped there and causing his right ring finger to get smashed between the tree and his trailer. Patient complains of pain to the left ring finger was noted to have a crush injury to the tip of the finger. Tetanus within the last 5 years. Exam Patient crying hysterically, appears to be in a great deal of pain. Patient noted to have crushtype injury to the right ring finger bleeding controlled. Sensation is intact. Since the patient was having so much pain, I did perform a digital block in order to get pain control. Plan Patient had a digital block performed with 0.5% bupivacaine. Anesthesia was achieved and the patient was feeling significantly better. He will receive an x-ray of the finger to determine if fractures have occurred and will need repair and washout. An initial examination was made on the patient as part of the triage process, and it was determined a more comprehensive evaluation was necessary. Initial labs were ordered and patient was transferred to another provider in the ED who assumed care and finished evaluation and plan. - Related Data Allergies/Adverse Reactions: No Known Allergies Allergy (Verified 01/10/19 15:05) Past Medical History - Social History Chew tobacco use (# tins/day): No Frequency of alcohol use: None Drug Abuse: None Renal/ Medical History: Denies: Hx Peritoneal Dialysis Psychiatric Medical History: Reports: Hx Depression - Immunizations Immunizations up to date: Yes Hx Diphtheria, Pertussis, Tetanus Vaccination: Yes - Patient states January 2018 Physical Exam - Vital signs Vitals: Temp Pulse Resp BP Pulse Ox 97.9 F 79 20 144/98 H 99 01/10/19 15:08 01/10/19 15:08 01/10/19 15:08 01/10/19 15:08 01/10/19 15:08 Course - Vital Signs Vital signs: Temp Pulse Resp BP Pulse Ox 97.9 F 79 20 144/98 H 99 01/10/19 15:08 01/10/19 15:08 01/10/19 15:08 01/10/19 15:08 01/10/19 15:08
--- NOTE | 2019-01-10 16:03 | RADIOLOGY REPORT (SQ) ---
EXAM DESCRIPTION: HAND RIGHT 3 VIEWS COMPLETED DATE/TIME: 01/10/2019 3:53 pm REASON FOR STUDY: RING FINGER INJURY COMPARISON: None. EXAM PARAMETERS: NUMBER OF VIEWS: Three views. TECHNIQUE: AP, lateral and oblique radiographic images acquired of the right hand. LIMITATIONS: None. FINDINGS: MINERALIZATION: Normal. BONES: No acute fracture or dislocation. No worrisome bone lesions. JOINTS: No effusion. SOFT TISSUES: Distal 4th digit laceration- soft tissue swelling. No radiopaque foreign body. OTHER: No other significant finding. IMPRESSION: No fracture identified. TECHNICAL DOCUMENTATION: JOB ID: [id number] [place]-72 2010 [employer]- All Rights Reserved Reading location - IP/workstation name: [email or web address]
[2019-01-10] MEDS ORDERED: LIDOCAINE 1% INJ-PF (10 MG/ML) 30 ML SDV INJ ONE (16:34)
--- NOTE | 2019-01-10 17:14 | ER Document Report ---
ED General - General Chief Complaint: Hand Injury Stated Complaint: HAND INJURY Time Seen by Provider: 01/10/19 15:23 Mode of Arrival: Ambulatory Information source: Patient, Friend, [facility] Records Notes: 33-year-old male with depression presents with a right ring finger injury. Patient works removing trees and states that coworker were moving a stump when his coworker could no longer handle the weights of the tree and dropped his side causing the tree stump to land on the patient's right hand. Patient states that his finger was pinned under the piece of wood for approximately 30 seconds. Patient is right-hand dominant. Tetanus is up-to-date. TRAVEL OUTSIDE OF THE [place] IN LAST 30 DAYS: No - HPI Onset: Just prior to arrival Onset/Duration: Sudden Quality of pain: Throbbing Severity: Moderate Pain Level: 3 Associated symptoms: None Exacerbated by: Movement Relieved by: Denies Similar symptoms previously: No Recently seen / treated by doctor: No - Related Data Allergies/Adverse Reactions: No Known Allergies Allergy (Verified 01/10/19 15:05) Past Medical History - General Information source: Patient - Social History Smoking Status: Current Every Day Smoker Cigarette use (# per day): Yes - 15 Chew tobacco use (# tins/day): No Smoking Education Provided: Yes - smoking cessation counseling was provided for 4 minutes at the bedside Frequency of alcohol use: None Drug Abuse: None Lives with: Family Family History: Reviewed & Not Pertinent Patient has suicidal ideation: No Patient has homicidal ideation: No Renal/ Medical History: Denies: Hx Peritoneal Dialysis Psychiatric Medical History: Reports: Hx Depression - Immunizations Immunizations up to date: Yes Hx Diphtheria, Pertussis, Tetanus Vaccination: Yes - Patient states January 2018 Review of Systems - Review of Systems Notes: REVIEW OF SYSTEMS: CONSTITUTIONAL : Denies fever, chills, or sweats. Denies recent illness. Denies weight loss, recent hospitalizations. EENT: Denies visual changes, eye pain. Denies sore throat, oral lesions, difficulty swallowing. CARDIOVASCULAR: Denies chest pain. Denies palpitations. Denies lower extremity edema. RESPIRATORY: Denies cough. Denies shortness of breath, wheezing. GASTROINTESTINAL: Denies abdominal pain or distention. Denies nausea, vomiting, or diarrhea. Denies blood in vomitus, stools, or per rectum. Denies black, tarry stools. Denies constipation. GENITOURINARY: Denies difficulty urinating, painful urination, frequency, blood in urine, testicular pain or penile discharge. MUSCULOSKELETAL: Denies back or neck pain or stiffness. Denies joint swelling. SKIN: + Laceration right ring finger HEMATOLOGIC : Denies easy bruising or bleeding. LYMPHATIC: Denies swollen glands. NEUROLOGICAL: Denies confusion or altered mental status. Denies loss of consciousness. Denies dizziness or lightheadedness. Denies headache. Denies weakness or paralysis. Denies problems difficulty with ambulation, slurred speech. Denies sensory loss, numbness, or tingling. Denies seizures. PSYCHIATRIC: Denies anxiety or stress. Denies depression, suicidal ideation, or Physical Exam - Vital signs Vitals: Temp Pulse Resp BP Pulse Ox 97.9 F 79 20 144/98 H 99 01/10/19 15:08 01/10/19 15:08 01/10/19 15:08 01/10/19 15:08 01/10/19 15:08 - Notes Notes: PHYSICAL EXAMINATION: GENERAL: Well-appearing, well-nourished and in no acute distress. HEAD: Atraumatic, normocephalic. EYES: Pupils equal round and reactive to light, extraocular movements intact, sclera anicteric, conjunctiva are normal. ENT: Nares patent, oropharynx clear without exudates. Moist mucous membranes. NECK: Normal range of motion, supple without lymphadenopathy LUNGS: Breath sounds clear to auscultation bilaterally and equal. No wheezes rales or rhonchi. HEART: Regular rate and rhythm without murmurs ABDOMEN: Soft, nontender, nondistended abdomen. No guarding, no rebound. No masses appreciated. Musculoskeletal: Normal range of motion, no pitting or edema. No cyanosis. Right hand radial and ulnar-pulse intact. Right ring fingeremaciated tissue of the distal phalanx. No bone exposure, nailbed involvement. Sensation intact. Cap refill less than 3 seconds. NEUROLOGICAL: Cranial nerves grossly intact. Normal speech, normal gait. Normal sensory, motor exams PSYCH: Normal mood, normal affect. SKIN: Warm, Dry, normal turgor, no rashes or lesions noted. Course - Re-evaluation Re-evalutation: Hand X-Ray 01/10/19 15:27 IMPRESSION: No fracture identified. Temp Pulse Resp BP Pulse Ox 98.0 F 51 L 16 118/77 99 01/10/19 17:33 01/10/19 17:33 01/10/19 17:33 01/10/19 17:33 01/10/19 17:33 01/10/19 20:16 33-year-old male presents with right ring finger pain, laceration that occurred just prior to arrival. Vital signs reviewed and within normal limits. Patient does not appear toxic or dehydrated. He is in mild distress secondary to pain. Digital block was performed by the provider in triage. X-rays of the hand were obtained and showed no evidence of fracture. The distal phalanx has avulsed tissue. Patient can was irrigated with Betadine, normal saline. Sutures were placed without complication. Steri-Strips were used to approximate some of the wound edges due to tissue avulsion. Patient tolerated this well. Patient will be placed on Keflex. Advised to return in 10 to 12 days for suture, or sooner if he experiences symptoms of infection including increasing pain, fever, purulent discharge. Advised the patient that the skin of his distal phalanx would likely become necrotic. Patient was placed in a finger splint, bulky dressing. Upon discharge patient requested a refill of his Prozac which I did provide for him. - Vital Signs Vital signs: Temp Pulse Resp BP Pulse Ox 98.0 F 51 L 16 118/77 99 01/10/19 17:33 01/10/19 17:33 01/10/19 17:33 01/10/19 17:01/10/19 17:33 - Diagnostic Test Radiology reviewed: Image reviewed, Reports reviewed Procedures - Laceration/Wound Repair Right 4th digit Time completed: 17:14 Wound length (cm): 2 Wound's Depth, Shape: Irregular, Flap Laceration pre-procedure: Sterile PPE donned, Sterile drapes applied Wound explored: Clean Wound Repaired With: Sutures Suture Size/Type: 5:0, Ethilon Number of Sutures: 4 Layer Closure?: No Post-procedure wound care: Sterile dressing applied, Splint applied Post-procedure NV exam normal: Yes Complications: No Discharge - Discharge Clinical Impression: Medication refill Finger laceration Qualifiers: Encounter type: initial encounter Finger: ring finger Damage to nail status: with damage Foreign body presence: without foreign body Laterality: right Qualified Code(s): S61.314A - Laceration without foreign body of right ring finger with damage to nail, initial encounter Contusion of right hand Qualifiers: Encounter type: initial encounter Qualified Code(s): S60.221A - Contusion of right hand, initial encounter Condition: Good Disposition: HOME, SELF-CARE Instructions: Antibiotic Ointment Protection ([facility]), Soap Cleansing ([facility]) Additional Instructions: Please return to your primary doctor, the ED, or an urgent care in 12 days for suture removal. Return immediately if you develop spreading redness around the wound, pus from the wound, worsening pain, or a fever of >100.4. Keep the area clean and dry. Wash gently with soap and water twice daily and cover with antibiotic ointment. Prescriptions: Cephalexin Monohydrate [Keflex 500 mg Capsule] 500 mg PO BID 5 Days #10 capsule Fluoxetine HCl [Prozac 20 mg Capsule] 20 mg PO DAILY #30 capsule Forms: Smoking Cessation Education, Return to Work
[2019-01-10 17:35] VITALS: BP 118/77
== END 2019-01-10 17:37 | disposition home or self-care (01) ==
LOC: ER 15:03
DX: S61.214A Laceration without foreign body of right ring finger without damage to nail, initial encounter (principal); S60.221A Contusion of right hand, initial encounter; W20.8XXA Other cause of strike by thrown, projected or falling object, initial encounter; Y93.89 Activity, other specified; Y99.0 Civilian activity done for income or pay; F32.9 Major depressive disorder, single episode, unspecified; Z76.0 Encounter for issue of repeat prescription; F17.210 Nicotine dependence, cigarettes, uncomplicated; Z71.6 Tobacco abuse counseling
CPT/HCPCS: 99406; 99283; 73130; 12001; J3490

== ENCOUNTER 2019-03-10 15:46 | Emergency (ER) | payer SELFPAY ==
--- NOTE | 2019-03-10 15:59 | ER Document Report ---
ED Medical Screen (RME) - General Chief Complaint: Suicidal Ideation Stated Complaint: PSYCH EVAL Time Seen by Provider: 03/10/19 15:56 TRAVEL OUTSIDE OF THE [place] IN LAST 30 DAYS: No - HPI Notes: 03/10/19 15:57 Patient is a 33-year-old male with a history of depression who presents complaining of increased stressors and emotions in his life causing him to have suicidal ideations and planning. Patient states that he recently lost his job in place to live. He has been out of his Prozac over the past several days and has not been taking his Suboxone as well. Patient does admit to smoking crack earlier today. Patient states that he is wanting a car to hit him as he is walking. He has had multiple attempts to take his life in the past including hanging and slitting his wrists. No other visual or auditory hallucinations. Patient states that he does hear some self talk that he would be better off . Denies NAVA, fever, neck pain, URI, CP, SOB, Abd pain, dysuria, back pain, or rash. I have treated and performed a rapid initial assessment of this patient. A comprehensive ED assessment and evaluation of the patient, analysis of test results and completion of medical decision making process will be conducted by additional ED providers. PHYSICAL EXAMINATION: GENERAL: no acute distress. A&Ox4. Answers questions appropriately. LUNGS: Breath sounds clear to auscultation bilaterally and equal. No wheezes rales or rhonchi. HEART: Regular rate and rhythm without murmurs, rubs, gallops. Extremities: No cyanosis, clubbing, or edema b/l. NEUROLOGICAL: Normal speech, normal gait. PSYCH: emotional, crying - Related Data Allergies/Adverse Reactions: No Known Allergies Allergy (Verified 01/10/19 15:05) Past Medical History Renal/ Medical History: Denies: Hx Peritoneal Dialysis Psychiatric Medical History: Reports: Hx Depression - Immunizations Immunizations up to date: Yes Hx Diphtheria, Pertussis, Tetanus Vaccination: Yes - Patient states January 2018 Physical Exam - Vital signs Vitals: Temp Pulse Resp BP Pulse Ox 97.5 F 111 H 18 161/94 H 97 03/10/19 15:51 03/10/19 15:51 03/10/19 15:51 03/10/19 15:51 03/10/19 15:51 Course - Vital Signs Vital signs: Temp Pulse Resp BP Pulse Ox 97.5 F 111 H 18 161/94 H 97 03/10/19 15:51 03/10/19 15:51 03/10/19 15:51 03/10/19 15:51 03/10/19 15:51
[2019-03-10 16:34] LABS: ABSOLUTE LYMPHOCYTES (AUTO) 1.5 10^3/uL (0.5-4.7); ABSOLUTE MONOCYTES (AUTO) 0.4 10^3/uL (0.1-1.4); ABSOLUTE NEUT (AUTO) 5.5 10^3/uL (1.7-8.2); BASOPHILS % (AUTO) 0.6 % (0-2); EOSINOPHILS % (AUTO) 0.5 % (0-6); HEMATOCRIT 42.4 % (37.9-51.0); HEMOGLOBIN 14.8 g/dL (13.5-17.0); LYMPHOCYTES % (AUTO) 20.6 % (13-45); MEAN CORPUSCULAR HEMOGLOBIN 29.8 pg (27.0-33.4); MEAN CORPUSCULAR HGB CONC 34.9 g/dL (32.0-36.0); MEAN CORPUSCULAR VOLUME 85 fl (80-97); MONOCYTES % (AUTO) 5.8 % (3-13); PLATELET COUNT 311 10^3/uL (150-450); RED BLOOD COUNT 4.98 10^6/uL (4.35-5.55); RED CELL DISTRIBUTION WIDTH 14.1 % (11.5-14.0); SEGMENTED NEUTROPHILS % (AUTO) 72.5 % (42-78); TOTAL CELLS COUNTED % (AUTO) 100 %; WHITE BLOOD COUNT 7.5 10^3/uL (4.0-10.5)
[2019-03-10 16:51] LABS: APPEARANCE,URINE SLIGHTLY-CLOUDY; BILIRUBIN,URINE NEGATIVE (NEGATIVE); COLOR,URINE YELLOW; GLUCOSE, URINE NEGATIVE (NEGATIVE); KETONES,URINE TRACE mg/dL (NEGATIVE); LEUKOCYTE ESTERASE,URINE NEGATIVE (NEGATIVE); NITRITE,URINE NEGATIVE (NEGATIVE); PROTEIN,URINE 100 mg/dL (NEGATIVE); URINE SPECIFIC GRAVITY 1.026
[2019-03-10 17:02] LABS: ALANINE AMINOTRANSFERASE 22 U/L (21-72); ALBUMIN 4.7 g/dL (3.5-5.0); ALKALINE PHOSPHATASE 81 U/L (38-126); ANION GAP 10 (5-19); ASPARTATE AMINO TRANSFERASE 27 U/L (17-59); BILIRUBIN,DIRECT 0.3 mg/dL (0.0-0.4); BILIRUBIN,TOTAL 0.7 mg/dL (0.2-1.3); BLOOD UREA NITROGEN 17 mg/dL (7-20); CALCIUM 10.1 mg/dL (8.4-10.2); CARBON DIOXIDE 28 mmol/L (22-30); CHLORIDE 104 mmol/L (98-107); GLUCOSE 122 mg/dL (75-110); POTASSIUM 4.4 mmol/L (3.6-5.0); SODIUM 141.6 mmol/L (137-145); TOTAL PROTEIN 8.3 g/dL (6.3-8.2)
[2019-03-10 17:03] LABS: ACETAMINOPHEN < 10 ug/mL (10-30); ALCOHOL < 10 mg/dL (NONE DETECTED); SALICYLATE < 1.0 mg/dL (2.0-20.0)
[2019-03-10 17:05] LABS: URINE AMPHETAMINES SCREEN NEGATIVE; URINE BARBITURATES SCREEN NEGATIVE; URINE BENZODIAZEPINES SCREEN UNCONFIRMED POSITIVE; URINE COCAINE SCREEN UNCONFIRMED POSITIVE; URINE MARIJUANA (THC) SCREEN UNCONFIRMED POSITIVE; URINE METHADONE SCREEN NEGATIVE; URINE PHENCYCLIDINE SCREEN NEGATIVE
[2019-03-10] MEDS ORDERED: LORAZEPAM 1 MG TABLET PO ONE (21:01)
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
[2019-03-10] MEDS: NICOTINE 21 MG/24 HR PATCH.TD24 TD PRN (22:18)
--- NOTE | 2019-03-11 00:16 | EKG REPORT ---
SEVERITY:- BORDERLINE ECG - SINUS RHYTHM BORDERLINE INFERIOR Q WAVES : Confirmed by: Alex Mccoy 11-Mar-2019 00:15:29
[2019-03-11] MEDS ORDERED: HYDROXYZINE PAMOATE 50 MG CAPSULE PO ONE (12:04)
--- NOTE | 2019-03-11 16:22 | PSYCHOLOGICAL NOTE ---
Psych Note - Psych Note Date seen by psych provider: 03/11/19 Time seen by psych provider: 08:15 Psych Note: Polysubstance abuse Posttraumatic stress disorder Sexual identity crisis No medication recommendations at this time Impression\plan: Patient is recommended for continued overnight mental health observation. Patient identifies passive suicidal ideation i.e. no plans means or intent. Patient disclosed history of trauma and difficulty coping and identifying his sexual identity. Patient reports sometimes he feels like a man while other times he feels like a woman; he identifies himself as Marli. Behavioral health team was unsuccessful in contacting patient's sister; attempts will continue. Dr. Turk was consulted to care management of this patient; attending physicians in agreement with recommendations and disposition.
--- NOTE | 2019-03-11 17:58 | ER Document Report ---
Doctor's Note Notes: 03/11/19 17:57 Rounds: Chart reviewed and patient interviewed. Patient is here for evaluation of suicidal thoughts and substance abuse. He has been using cocaine 3 vital signs all essentially normal. Patient appears to be medically stable for transfer or discharge. Oren Blanchard MD
[2019-03-11] MEDS: HYDROXYZINE PAMOATE 50 MG CAPSULE PO PRN ×2 (18:58→22:57)
[2019-03-11] MEDS: NICOTINE 21 MG/24 HR PATCH.TD24 TD PRN (22:56)
[2019-03-11] MEDS ORDERED: ACETAMINOPHEN 325 MG TABLET PO ONE (23:56)
--- NOTE | 2019-03-12 09:49 | ER Document Report ---
Doctor's Note Notes: 03/12/19 09:47 Rounds: Chart reviewed and patient interviewed. Patient is being evaluated for suicidal ideation and substance abuse. His drug screen was positive for benzos, cocaine, and marijuana. Patient's nervous and anxious and jittery at this time and feels he is going through withdrawal. Vital signs are all normal. Will prescribe Vistaril as needed. Patient appears to be medically stable for transfer or discharge. Oren Blanchard MD
[2019-03-12 10:04] VITALS: BP 135/63
== END 2019-03-12 10:00 | disposition home or self-care (01) ==
LOC: ER 15:46
DX: R45.851 Suicidal ideations (principal); F14.10 Cocaine abuse, uncomplicated; F12.10 Cannabis abuse, uncomplicated; F11.10 Opioid abuse, uncomplicated; F19.10 Other psychoactive substance abuse, uncomplicated; Z56.0 Unemployment, unspecified; F17.200 Nicotine dependence, unspecified, uncomplicated; Z81.3 Family history of other psychoactive substance abuse and dependence; Z81.8 Family history of other mental and behavioral disorders; S00.11XA Contusion of right eyelid and periocular area, initial encounter; X58.XXXA Exposure to other specified factors, initial encounter; Z62.810 Personal history of physical and sexual abuse in childhood; Z91.5 Personal history of self-harm
CPT/HCPCS: 36415; 80053; 80307; 81001; 85025; 93005; 93010; 99285

== ENCOUNTER 2019-09-10 21:49 | Observation (INO) | payer SELFPAY ==
--- NOTE | 2019-09-10 23:20 | ER Document Report ---
ED Medical Screen (RME) - General Chief Complaint: Abscess Stated Complaint: ABSCESS Time Seen by Provider: 09/10/19 23:18 Mode of Arrival: Ambulatory Information source: Patient Notes: Patient presents with abscess to right forearm for the past 3 days. Patient denies any fever. Patient does have a history of IV drug use and last shot up several days ago. I have greeted and performed a rapid initial assessment of this patient. A comprehensive ED assessment and evaluation of the patient, analysis of test results and completion of the medical decision making process will be conducted by additional ED providers. TRAVEL OUTSIDE OF THE [place] IN LAST 30 DAYS: No - Related Data Allergies/Adverse Reactions: No Known Allergies Allergy (Verified 09/10/19 23:12) Home Medications: PSYCH MEDS (DOES NOT TAKE) Past Medical History - Social History Frequency of alcohol use: None Drug Abuse: Cocaine Renal/ Medical History: Denies: Hx Peritoneal Dialysis Psychiatric Medical History: Reports: Hx Depression - Immunizations Immunizations up to date: Yes Hx Diphtheria, Pertussis, Tetanus Vaccination: Yes - Patient states January 2018 Physical Exam - Vital signs Vitals: Temp Pulse Resp BP Pulse Ox 98.2 F 86 18 124/66 98 09/10/19 22:51 09/10/19 22:51 09/10/19 22:51 09/10/19 22:51 09/10/19 22:51 - General General appearance: Alert Notes: Abscess to right forearm with surrounding erythema Course - Vital Signs Vital signs: Temp Pulse Resp BP Pulse Ox 98.2 F 86 18 124/66 98 09/10/19 22:51 09/10/19 22:51 09/10/19 22:51 09/10/19 22:51 09/10/19 22:51
[2019-09-11] MEDS ORDERED: VANCOMYCIN HCL INJ 1000 MG VIAL IV ONE (03:39)
[2019-09-11] MEDS ORDERED: PIPERACILLIN/TAZOBACTAM 3.375 GM VIAL IV ONE (03:40)
--- NOTE | 2019-09-11 03:41 | ER Document Report ---
ED Skin Rash/Insect Bite/Abscs - General Chief Complaint: Abscess Stated Complaint: ABSCESS Time Seen by Provider: 09/10/19 23:18 Mode of Arrival: Ambulatory Information source: Patient Notes: 34-year-old male presented to ED for an abscess to the left forearm for the last 3 days. He states he used heroin, meth, and cocaine on and the sore developed soon afterwards. He states he is not sure which drug caused this abscess because he is not sure which one he put in which arm. He stated he also injected with cocaine at 9:00 yesterday morning and heroin at 4:30 in the after noon has not used any meth since . TRAVEL OUTSIDE OF THE [place] IN LAST 30 DAYS: No - HPI Patient complains to provider of: Tender/swollen area Onset: Other - The last couple days has been progressively getting larger Onset/Duration: Worse Quality of pain: Sharp, Throbbing Severity: Severe Pain Level: 5 Skin Character: Abscess - Due to IV drug use left forearm Quality of rash: Painful Exacerbated by: Denies Relieved by: Denies Similar symptoms previously: Yes Recently seen / treated by doctor: No - Related Data Allergies/Adverse Reactions: No Known Allergies Allergy (Verified 09/10/19 23:12) Home Medications: PSYCH MEDS (DOES NOT TAKE) Past Medical History - General Information source: Patient - Social History Smoking Status: Current Every Day Smoker Cigarette use (# per day): Yes - He states between 1 and 2 packs/day Smoking Education Provided: Yes - 4 minutes Frequency of alcohol use: None Drug Abuse: Cocaine, Heroin, Methamphetamine Lives with: Homeless Family History: Reviewed & Not Pertinent, Other - Grandmother with schizophrenia, polysubstance abuse in multiple family members Patient has suicidal ideation: No Patient has homicidal ideation: No - Past Medical History Cardiac Medical History: Reports: None Pulmonary Medical History: Reports: None EENT Medical History: Reports: None Neurological Medical History: Reports: None Endocrine Medical History: Reports: None Renal/ Medical History: Reports: None Malignancy Medical History: Reports None GI Medical History: Reports: None Musculoskeletal Medical History: Reports None Skin Medical History: Reports Hx Cellulitis Psychiatric Medical History: Reports: Hx Depression Traumatic Medical History: Reports: None Infectious Medical History: Reports: None Surgical Hx: Negative Past Surgical History: Reports: None - Immunizations Immunizations up to date: Yes Hx Diphtheria, Pertussis, Tetanus Vaccination: Yes - Patient states January 2018 Review of Systems - Review of Systems Constitutional: No symptoms reported EENT: No symptoms reported Cardiovascular: No symptoms reported Respiratory: No symptoms reported Gastrointestinal: No symptoms reported Genitourinary: No symptoms reported Male Genitourinary: No symptoms reported Musculoskeletal: No symptoms reported Skin: Change in color, Other - Large abscess right forearm Hematologic/Lymphatic: No symptoms reported Neurological/Psychological: No symptoms reported Physical Exam - Vital signs Vitals: Temp Pulse Resp BP Pulse Ox 98.2 F 86 18 124/66 98 09/10/19 22:51 09/10/19 22:51 09/10/19 22:51 09/10/19 22:51 09/10/19 22:51 Interpretation: Normal - General General appearance: Appears well, Alert - HEENT Head: Normocephalic, Atraumatic Eyes: Normal Pupils: PERRL - Respiratory Respiratory status: No respiratory distress Chest status: Nontender Breath sounds: Normal Chest palpation: Normal - Cardiovascular Rhythm: Regular Heart sounds: Normal auscultation Murmur: No - Abdominal Inspection: Normal Distension: No distension Bowel sounds: Normal Tenderness: Nontender Organomegaly: No organomegaly - Back Back: Normal, Nontender - Extremities General upper extremity: Normal inspection, Nontender, Normal color, Normal ROM, Normal temperature General lower extremity: Normal inspection, Nontender, Normal color, Normal ROM, Normal temperature, Normal weight bearing. No: Ruby's sign Forearm: Tender, Other - Large abscess with erythema from elbow to wrist from IV drug use left forearm - Neurological Neuro grossly intact: Yes Cognition: Normal Orientation: AAOx4 [place] Coma Scale Eye Opening: Spontaneous [place] Coma Scale Verbal: Oriented [place] Coma Scale Motor: Obeys Commands [place] Coma Scale Total: 15 Speech: Normal Motor strength normal: LUE, RUE, LLE, RLE Sensory: Normal - Psychological Associated symptoms: Normal affect, Normal mood - Skin Skin Temperature: Warm Skin Moisture: Dry Skin Color: Normal Skin irregularity: Abscess - Right forearm after IV drug use. X-ray shows a needle in the arm. Location of irregularity: Extremities - Left forearm Character of irregularity: Erythematous Irregularity with: Swelling, Tenderness, Warmth Course - Re-evaluation Re-evalutation: 09/11/19 06:14 Dr. Dailey has been consulted he is in the room examining the patient. 09/11/19 08:40 Dr. Dailey told me that Dr. Moraes was going to admit the patient earlier. Dr. Moraes did come to the room and examined the patient and stated that he would be taken the patient to surgery instead of doing the I&D and the room. Patient has been n.p.o. since a.m. I did confirm with patient that he had taken cocaine last at 8 AM yesterday and heroin last at 4:30 PM x-ray did show a needle in the arm and he does have a large abscess from the IV drug use. - Vital Signs Vital signs: Temp Pulse Resp BP Pulse Ox 98 F 81 23 H 121/72 97 09/11/19 04:00 09/11/19 02:06 09/11/19 07:01 09/11/19 07:01 09/11/19 07:01 - Laboratory Result Diagrams: 09/11/19 04:30 09/11/19 04:30 Laboratory results interpreted by me: 09/11/19 09/11/19 04:30 04:30 Hgb 13.4 L Glucose 121 H - Diagnostic Test Radiology reviewed: Image reviewed, Reports reviewed Discharge - Discharge Clinical Impression: abscess right forearm with foreign body Disposition: ADMITTED INPATIENT Admitting Provider: Surgicalist Ruth moraes Unit Admitted: Surgical Floor
[2019-09-11] MEDS ORDERED: KETOROLAC TROMETHAMINE INJ/PF 30 MG/1 ML SDV IV ONE (03:42)
[2019-09-11 05:00] LABS: ABSOLUTE BASOPHILS # (AUTO) 0.1 10^3/uL (0.0-0.2); ABSOLUTE EOSINOPHILS # (AUTO) 0.2 10^3/uL (0.0-0.6); ABSOLUTE LYMPHOCYTES (AUTO) 2.2 10^3/uL (0.5-4.7); ABSOLUTE MONOCYTES (AUTO) 0.5 10^3/uL (0.1-1.4); BASOPHILS % (AUTO) 0.9 % (0-2); EOSINOPHILS % (AUTO) 2.4 % (0-6); HEMATOCRIT 39.1 % (37.9-51.0); HEMOGLOBIN 13.4 g/dL (13.5-17.0); LYMPHOCYTES % (AUTO) 32.1 % (13-45); MEAN CORPUSCULAR HEMOGLOBIN 30.1 pg (27.0-33.4); MEAN CORPUSCULAR HGB CONC 34.2 g/dL (32.0-36.0); MEAN CORPUSCULAR VOLUME 88 fl (80-97); MONOCYTES % (AUTO) 7.6 % (3-13); PLATELET COUNT 289 10^3/uL (150-450); RED BLOOD COUNT 4.44 10^6/uL (4.35-5.55); TOTAL CELLS COUNTED % (AUTO) 100 %
[2019-09-11 05:07] LABS: ALBUMIN 4.2 g/dL (3.5-5.0); ALKALINE PHOSPHATASE 87 U/L (38-126); ANION GAP 11 (5-19); ASPARTATE AMINO TRANSFERASE 22 U/L (17-59); BILIRUBIN,DIRECT 0.3 mg/dL (0.0-0.4); BILIRUBIN,TOTAL 0.4 mg/dL (0.2-1.3); BLOOD UREA NITROGEN 17 mg/dL (7-20); CALCIUM 9.9 mg/dL (8.4-10.2); CARBON DIOXIDE 30 mmol/L (22-30); CHLORIDE 100 mmol/L (98-107); GLUCOSE 121 mg/dL (75-110)
[2019-09-11 05:12] LABS: URINE AMPHETAMINES SCREEN NEGATIVE; URINE BARBITURATES SCREEN NEGATIVE; URINE BENZODIAZEPINES SCREEN NEGATIVE; URINE MARIJUANA (THC) SCREEN NEGATIVE; URINE METHADONE SCREEN NEGATIVE; URINE PHENCYCLIDINE SCREEN NEGATIVE
[2019-09-11 05:13] LABS: URINE COCAINE SCREEN UNCONFIRMED POSITIVE
[2019-09-11] MEDS ORDERED: VANCOMYCIN HCL INJ 1000 MG VIAL ONE (05:51)
--- NOTE | 2019-09-11 06:30 | RADIOLOGY REPORT (SQ) ---
Right forearm two view on 09/11/2019 at 3:55 AM CLINICAL INDICATION: IV drug use, abscess COMPARISON: None FINDINGS: There is a broken portion of a needle in the volar aspect of the mid to distal forearm measuring 1.2 cm in length. Soft tissue swelling is noted in the forearm consistent with the reported history of infection. There are no fractures. Visualized joints are well aligned. No bony abnormality is noted. No joint effusion is noted in the elbow. IMPRESSION: Broken portion of a needle foreign body in the volar soft tissues of the forearm as above.
--- NOTE | 2019-09-11 06:53 | PDOC H&P ---
History of Present Illness Admission Date/PCP: 09/11/2019 Patient complains of: Pains right forearm History of Present Illness: VIRGINIA LAUREN is a 34 year old male who injected his right forearm with heroin, cocaine and meth 09/09/2019. Immediately developed pains along the right forearm and presented to the ED late last night with an abscess of the forearm. X-ray of the right forearm revealed a broken needle. Past Medical History Cardiac Medical History: Reports: None Pulmonary Medical History: Reports: None EENT Medical History: Reports: None Neurological Medical History: Reports: None Endocrine Medical History: Reports: None Renal/ Medical History: Reports: None Malignancy Medical History: Reports: None GI Medical History: Reports: None Musculoskeltal Medical History: Reports: None Psychiatric Medical History: Reports: Depression Traumatic Medical History: Reports: None Infectious Medical History: Reports: None Past Surgical History Past Surgical History: Reports: None Social History Lives with: Homeless Smoking Status: Current Every Day Smoker Family History Family History: Reviewed & Not Pertinent, Other - Grandmother with schizophrenia, polysubstance abuse in multiple family members Parental Family History Reviewed: Yes Children Family History Reviewed: No Sibling(s) Family History Reviewed.: No Medication/Allergy Home Medications: Amox Tr/Potassium Clavulanate [Augmentin 875-125 Tablet] 1 tab PO BID 10 Days tablet 09/09/18 Fluoxetine HCl [Prozac 20 mg Capsule] 20 mg PO DAILY #30 capsule 12/31/18 Gabapentin [Neurontin 100 mg Capsule] 100 mg PO ASDIR PRN #54 capsule 12/31/18 Ondansetron [Zofran Odt 4 mg Tablet] 1 tab PO Q4H PRN #15 tab.rapdis 12/31/18 Fluoxetine HCl [Prozac 20 mg Capsule] 20 mg PO DAILY #14 capsule 01/01/19 Ondansetron [Zofran Odt 4 mg Tablet] 1 - 2 tab PO Q4H PRN #15 tab.rapdis 01/01/19 Cephalexin Monohydrate [Keflex 500 mg Capsule] 500 mg PO BID 5 Days #10 capsule 01/10/19 Fluoxetine HCl [Prozac 20 mg Capsule] 20 mg PO DAILY #30 capsule 01/10/19 Allergies/Adverse Reactions: No Known Allergies Allergy (Verified 09/10/19 23:12) Review of Systems Constitutional: PRESENT: as per HPI Musculoskeletal: PRESENT: other - Painful erythematous swelling on the right posterior forearm. Physical Exam Vital Signs: Temp Pulse Resp BP Pulse Ox 98 F 81 13 123/81 98 09/11/19 04:00 09/11/19 02:06 09/11/19 06:01 09/11/19 06:00 09/11/19 06:01 Intake & Output 09/09/19 09/10/19 09/11/19 06:59 06:59 06:59 Weight 84.2 kg General appearance: PRESENT: mild distress Mouth exam: PRESENT: moist Neck exam: PRESENT: full ROM Respiratory exam: PRESENT: clear to auscultation rashida Cardiovascular exam: PRESENT: RRR Pulses: PRESENT: normal radial pulses Vascular exam: PRESENT: normal capillary refill GI/Abdominal exam: PRESENT: soft Rectal exam: PRESENT: deferred Extremities exam: PRESENT: tenderness - Erythematous swelling on the right posterior forearm Neurological exam: PRESENT: alert, oriented to person, oriented to place, oriented to time, oriented to situation Results Laboratory Results: 09/11/19 04:30 09/11/19 04:30 09/11/19 09/11/19 04:30 04:30 WBC 7.0 RBC 4.44 Hgb 13.4 L Hct 39.1 MCV 88 MCH 30.1 MCHC 34.2 RDW 14.0 Plt Count 289 Seg Neutrophils % 57.0 Sodium 140.5 Potassium 4.0 Chloride 100 Carbon Dioxide 30 Anion Gap 11 BUN 17 Creatinine 0.79 Est GFR ( Amer) > 60 Glucose 121 H Calcium 9.9 Total Bilirubin 0.4 AST 22 Alkaline Phosphatase 87 Total Protein 8.0 Albumin 4.2 Impressions: Forearm X-Ray 09/11/19 03:37 IMPRESSION: Broken portion of a needle foreign body in the volar soft tissues of the forearm as above. Assessment & Plan - Diagnosis (1) abscess right forearm with foreign body Is this a current diagnosis for this admission?: Yes - Time Time Spent: 30 to 50 Minutes - Inpatient Certification Medical Necessity: Need for IV Antibiotics, Need for Surgery - Plan Summary Plan Summary: 34-year-old male who injected his right forearm with cocaine, heroin methadone 09/09/2019. Developed an abscess of this area and went to ED late last night. X- ray of the right forearm revealed broken needle. There is an abscess on the right forearm but difficult to identify the site of the needle from the abscess site. Plans: Keep n.p.o. Start IV antibiotics For I&D of the abscess and possible removal of the foreign body in the OR under fluoroscopy guidance.
[2019-09-11] MEDS ORDERED: GLUCAGON,HUMAN RECOMB 1 MG INJ SUBCUT PRN (11:08)
[2019-09-11] MEDS ORDERED: DEXTROSE 40% GEL 15 GM TUBE PO PRN ×2 (11:08)
[2019-09-11] MEDS ORDERED: DEXTROSE 50%-WATER 25 GM/50 ML DISP.SYRIN IV PRN ×2 (11:08)
[2019-09-11] MEDS ORDERED: VANCOMYCIN HCL 0 MG in DEXTROSE 5%-WATER 250 ML IV NR (11:15)
[2019-09-11] MEDS: PIPERACILLIN SODIUM/TAZOBACTAM 3.375 GM in NORMAL SALINE 100 ML IV SCH ×2 (14:46→21:41)
[2019-09-11] MEDS: MORPHINE SULFATE 10 MG/ML INJ IV PRN ×3 (15:09→23:24)
[2019-09-11] MEDS: VANCOMYCIN HCL 1,000 MG in DEXTROSE 5%-WATER 250 ML IV SCH ×2 (15:14→22:44)
[2019-09-11] MEDS: POTASSI CL 20 MEQ/1/2NS 1L 20 MEQ/1,000 ML RTUINJ IV PRN (18:50)
[2019-09-11] MEDS: FAMOTIDINE INJ/PF 20 MG/2 ML SDV IV SCH (21:41)
[2019-09-12] MEDS: MORPHINE SULFATE 10 MG/ML INJ IV PRN ×3 (03:24→16:13)
[2019-09-12] MEDS: PIPERACILLIN SODIUM/TAZOBACTAM 3.375 GM in NORMAL SALINE 100 ML IV SCH ×2 (05:43→15:51)
[2019-09-12] MEDS: VANCOMYCIN HCL 1,000 MG in DEXTROSE 5%-WATER 250 ML IV SCH ×2 (08:02→16:15)
[2019-09-12] MEDS ORDERED: FENTANYL CITRATE INJ/PF 100 MCG/2 ML AMPUL ONE (09:00)
[2019-09-12] MEDS ORDERED: HYDROMORPHONE HCL INJ/PF 2 MG/ML AMPULE ONE (09:00)
[2019-09-12] MEDS ORDERED: LIDOCAINE 2% INJ-PF (20 MG/ML) 10 ML AMPUL ONE (09:00)
[2019-09-12] MEDS ORDERED: DEXMEDETOMIDINE INJ 80 MCG/20 ML VIAL IV ONE (09:00)
[2019-09-12] MEDS ORDERED: ONDANSETRON HCL INJ/PF 4 MG/2 ML SDV ONE (09:00)
[2019-09-12] MEDS ORDERED: MIDAZOLAM 2 MG/2 ML INJ ONE (09:00)
[2019-09-12] MEDS ORDERED: PROPOFOL INJ 200 MG/20 ML VIAL IV ONE ×2 (09:01→12:16)
[2019-09-12] MEDS ORDERED: BUPIVACAINE HCL 0.5 % INJ/PF 30 ML SDV ONE (09:03)
[2019-09-12] MEDS ORDERED: LIDOCAINE 2% INJ (20 MG/ML) 20 ML MDV ONE (09:08)
[2019-09-12] MEDS ORDERED: ROPIVACAINE HCL 0.5% INJ/PF (5 MG/1 ML) 30 ML SDV ONE (09:08)
[2019-09-12] MEDS ORDERED: LIDOCAINE 0.5%/EPINEPHRINE INJ 50 ML VIAL ONE (09:09)
[2019-09-12] MEDS ORDERED: LIDOCAINE 1%/EPINEPHRINE INJ 20 ML VIAL ONE (09:17)
[2019-09-12] MEDS ORDERED: FENTANYL CITRATE INJ/PF 100 MCG/2 ML AMPUL IV PRN ×3 (10:05)
[2019-09-12] MEDS ORDERED: ONDANSETRON HCL INJ/PF 4 MG/2 ML SDV IV PRN (10:05)
[2019-09-12] MEDS ORDERED: PROMETHAZINE HCL INJ 25 MG/1 ML VIAL IV PRN ×2 (10:05)
[2019-09-12] MEDS ORDERED: DIPHENHYDRAMINE HCL 50 MG/ML VIAL IV PRN (10:05)
--- NOTE | 2019-09-12 10:54 | Operative Report ---
Operative Report DATE OF SURGERY: 09/12/19 PREOPERATIVE DIAGNOSIS: Right forearm abscess with foreign body POSTOPERATIVE DIAGNOSIS: Right forearm abscess and forearm foreign body on a different site from the abscess OPERATION: Removal of foreign body under fluoroscopy guidance and incision and drainage of abscess of the forearm SURGEON: FELIX MCFARLAND ANESTHESIA: IV-Regional TISSUE REMOVED OR ALTERED: Foreign body/broken needle ESTIMATED BLOOD LOSS: 15 cc QUANTITATIVE BLOOD LOSS: 15 INTRAOPERATIVE FINDINGS: Right forearm abscess on the ulnar side and right forearm foreign body on the radial side PROCEDURE: After adequate sedation and right axillary block the right arm was then prepped and draped in the usual sterile fashion. Appropriate timeout was then called. Next 3 localizing needles placed in the right abscess site and fluoroscopy was done. No needle was noted at this area and appears to be on the opposite radial side. Next localizing needles were then placed on the radial side and foreign body which appears to be a broken needle was then localized. And a transverse i ncision was then made over the area where the foreign body was noted. Incision deepened to the subcutaneous area and a needle was noted in vein that is been thrombosed. The needle was order picker with a hemostat and a transverse incision made through the needle and the needle subsequently pulled out from the vein. No bleeding was noted indicating occluded vein. A follow-up fluoroscopy was done and showed foreign body is gone and no other foreign body noted. Hemostasis was then controlled over the subcu bleeders and. The incision was then closed with interrupted 3-0 Vicryl sutures. Incision was about 2 cm long. Another smaller incision was initially made just below the transverse incision was also closed with subcu 3-0 Vicryl undyed. Next a abscess cavity site was then incised in a longitudinal fashion about 2-1/2 cm long. Small amount of purulent material was noted but more of necrotic tissue which was irrigated. Stasis was then controlled with cautery. The whole cavity was actively open up. This was subsequently packed with quarter inch iodoform gauze about 8 inches long. The subsequently covered with sterile 4 x 4 and ABD. 4 x 4 also covered opposite incision for the foreign body removal as well as covered also with the same ABD pad and wrapped with Kerlix. Patient tolerated procedure well and brought to PACU in satisfactory condition.
[2019-09-12] MEDS: FAMOTIDINE INJ/PF 20 MG/2 ML SDV IV SCH (12:27)
[2019-09-12] MEDS: POTASSI CL 20 MEQ/1/2NS 1L 20 MEQ/1,000 ML RTUINJ IV PRN (12:38)
[2019-09-12 15:36] VITALS: BP 121/60
[2019-09-12] MEDS ORDERED: KETOROLAC TROMETHAMINE INJ/PF 30 MG/1 ML SDV IV SCH (18:00)
--- NOTE | 2019-09-12 21:19 | PDOC DISCHARGE SUMMARY ---
General - Admit/Disc Date/PCP Admission Date/Primary Care Provider: 09/11/19 07:54 Discharge Date: 09/12/19 - Discharge Diagnosis Final Diagnosis: Abscess of the right forearm. Foreign body right forearm separate from the abscess site - Additional Information Resuscitation Status: Full Code Home Medications: No Home Medications 09/11/19 History of Present Illiness History of Present Illness: VIRGINIA LAUREN is a 34 year old male who injected his right forearm with heroin, cocaine and meth 09/09/2019. Immediately developed pains along the right forearm and presented to the ED late last night with an abscess of the forearm. X-ray of the right forearm revealed a broken needle. Hospital Course Hospital Course: Patient admitted 09/11/2019 for abscess of the right forearm that he injected with the either cocaine, heroin or methadone about 3 days ago. He immediately developed pain and swelling along this area and went to ED where an x-ray of the right arm revealed the foreign body has broken needle appears to be at the area of the abscess site. Patient was admitted and the next day 2019 underwent incision and drainage of abscess of the right forearm and removal of foreign body which was a broken needle on the opposite side of the forearm under fluor oscopy guidance. Patient continued IV antibiotics. Patient on the early evening of 09/12/2019 went home AGAINST MEDICAL ADVICE and mention to the nurses that the drain that was placed in the OR can be removed the next day and I am coming to give you a prescription for antibiotics. And and as soon as I got to patient's room patient just left. Physical Exam Vital Signs: Temp Pulse Resp BP Pulse Ox 98.1 F 64 18 121/60 100 09/12/19 15:23 09/12/19 15:23 09/12/19 15:23 09/12/19 15:23 09/12/19 15:23 Intake & Output 09/11/19 09/12/19 09/13/19 06:59 06:59 06:59 Intake Total 1060 3138 Output Total 50 Balance 1060 3088 Weight 84.2 kg 80.9 kg Exam: Abscess site on the right forearm lateral area Results Laboratory Results: WBC 7.0 10^3/uL (4.0-10.5) 09/11/19 04:30 RBC 4.44 10^6/uL (4.35-5.55) 09/11/19 04:30 Hgb 13.4 g/dL (13.5-17.0) L 09/11/19 04:30 Hct 39.1 % (37.9-51.0) 09/11/19 04:30 MCV 88 fl (80-97) 09/11/19 04:30 MCH 30.1 pg (27.0-33.4) 09/11/19 04:30 MCHC 34.2 g/dL (32.0-36.0) 09/11/19 04:30 RDW 14.0 % (11.5-14.0) 09/11/19 04:30 Plt Count 289 10^3/uL (150-450) 09/11/19 04:30 Lymph % (Auto) 32.1 % (13-45) 09/11/19 04:30 [place] % (Auto) 7.6 % (3-13) 09/11/19 04:30 Eos % (Auto) 2.4 % (0-6) 09/11/19 04:30 Baso % (Auto) 0.9 % (0-2) 09/11/19 04:30 Absolute Neuts (auto) 4.0 10^3/uL (1.7-8.2) 09/11/19 04:30 Absolute Lymphs (auto) 2.2 10^3/uL (0.5-4.7) 09/11/19 04:30 Absolute Monos (auto) 0.5 10^3/uL (0.1-1.4) 09/11/19 04:30 Absolute Eos (auto) 0.2 10^3/uL (0.0-0.6) 09/11/19 04:30 Absolute Basos (auto) 0.1 10^3/uL (0.0-0.2) 09/11/19 04:30 Seg Neutrophils % 57.0 % (42-78) 09/11/19 04:30 Sodium 140.5 mmol/L (137-145) 09/11/19 04:30 Potassium 4.0 mmol/L (3.6-5.0) 09/11/19 04:30 Chloride 100 mmol/L (98-107) 09/11/19 04:30 Carbon Dioxide 30 mmol/L (22-30) 09/11/19 04:30 Anion Gap 11 (5-19) 09/11/19 04:30 BUN 17 mg/dL (7-20) 09/11/19 04:30 Creatinine 0.88 mg/dL (0.52-1.25) 09/12/19 05:47 Est GFR ( Amer) > 60 (>60) 09/12/19 05:47 Est GFR (MDRD) Non-Af > 60 (>60) 09/12/19 05:47 Glucose 121 mg/dL (75-110) H 09/11/19 04:30 Calcium 9.9 mg/dL (8.4-10.2) 09/11/19 04:30 Total Bilirubin 0.4 mg/dL (0.2-1.3) 09/11/19 04:30 Direct Bilirubin 0.3 mg/dL (0.0-0.4) 09/11/19 04:30 Neonat Total Bilirubin Not Reportable 09/11/19 04:30 Neonat Direct Bilirubin Not Reportable 09/11/19 04:30 Neonat Indirect Bili Not Reportable 09/11/19 04:30 AST 22 U/L (17-59) 09/11/19 04:30 ALT 14 U/L (<50) 09/11/19 04:30 Alkaline Phosphatase 87 U/L (38-126) 09/11/19 04:30 Total Protein 8.0 g/dL (6.3-8.2) 09/11/19 04:30 Albumin 4.2 g/dL (3.5-5.0) 09/11/19 04:30 Time Trough Drawn 0547 09/12/19 05:47 Vancomycin Trough 13.0 ug/mL (5.0-20.0) 09/12/19 05:47 Urine Opiates Screen UNCONFIRMED POSITIVE 09/11/19 04:30 Urine Methadone Screen NEGATIVE 09/11/19 04:30 Ur Barbiturates Screen NEGATIVE 09/11/19 04:30 Ur Phencyclidine Scrn NEGATIVE 09/11/19 04:30 Ur Amphetamines Screen NEGATIVE 09/11/19 04:30 U Benzodiazepines Scrn NEGATIVE 09/11/19 04:30 Urine Cocaine Screen UNCONFIRMED POSITIVE 09/11/19 04:30 U Marijuana (THC) Screen NEGATIVE 09/11/19 04:30 Impressions: Forearm X-Ray 09/11/19 03:37 IMPRESSION: Broken portion of a needle foreign body in the volar soft tissues of the forearm as above. Plan Health Concerns: Need incision and drainage of the abscess and removal of foreign body Plan of Treatment: Underwent incision and drainage of abscess of the right forearm and removal of foreign body on a different site on the right forearm under fluoroscopy guidance Goals: Incision and drainage of the abscess and removal of foreign body
--- NOTE | 2019-09-13 07:26 | RADIOLOGY REPORT (SQ) ---
EXAM DESCRIPTION: FOREARM RIGHT; NO CHG FLUORO COMPLETED DATE/TIME: 09/12/2019 10:51 am REASON FOR STUDY: FOREIGN BODY REMOVAL RIGHT FOREARM ASST WITH FLUORO IN OR COMPARISON: 09/11/2019 right forearm films FLUOROSCOPY TIME: 0.8 minutes 2 digital images saved to PACS. TECHNIQUE: Intra-operative images acquired during surgical procedure to evaluate progress. NUMBER OF IMAGES: 2 digital images LIMITATIONS: None. FINDINGS: 2 images are submitted for only fluoroscopic guided procedure. Initial image demonstrates multiple radiopaque foreign bodies in the forearm soft tissues. The 2nd film demonstrates that thes e foreign bodies and been removed in the same field of view. IMPRESSION: IMAGE(S) OBTAINED DURING PROCEDURE. COMMENT: Quality ID [id number]: Final reports for procedures using fluoroscopy that document radiation exp osure indices, or exposure time and number of fluorographic images (if radiation exposure indices are not available) Please consult full operative report of the attending physician for description of the procedure. TECHNICAL DOCUMENTATION: JOB ID: [id number] [employer]- All Rights Reserved Reading location - IP/workstation name: [email or web address]
--- NOTE | 2019-09-13 07:26 | RADIOLOGY REPORT (SQ) ---
EXAM DESCRIPTION: FOREARM RIGHT; NO CHG FLUORO COMPLETED DATE/TIME: 09/12/2019 10:51 am REASON FOR STUDY: FOREIGN BODY REMOVAL RIGHT FOREARM ASST WITH FLUORO IN OR COMPARISON: 09/11/2019 right forearm films FLUOROSCOPY TIME: 0.8 minutes 2 digital images saved to PACS. TECHNIQUE: Intra-operative images acquired during surgical procedure to evaluate progress. NUMBER OF IMAGES: 2 digital images LIMITATIONS: None. FINDINGS: 2 images are submitted for only fluoroscopic guided procedure. Initial image demonstrates multiple radiopaque foreign bodies in the forearm soft tissues. The 2nd film demonstrates that thes e foreign bodies and been removed in the same field of view. IMPRESSION: IMAGE(S) OBTAINED DURING PROCEDURE. COMMENT: Quality ID [id number]: Final reports for procedures using fluoroscopy that document radiation exp osure indices, or exposure time and number of fluorographic images (if radiation exposure indices are not available) Please consult full operative report of the attending physician for description of the procedure. TECHNICAL DOCUMENTATION: JOB ID: [id number] [employer]- All Rights Reserved Reading location - IP/workstation name: [email or web address]
== END 2019-09-12 18:20 | disposition left against medical advice (07) ==
LOC: ER 21:49 → EH 09-11 07:54 → INTOOBSV 09-11 07:54 → 4N 09-11 10:08
PROVIDERS: ADMIT Surgery; ATTEND Surgery
DX: L02.413 Cutaneous abscess of right upper limb (principal); S50.851A Superficial foreign body of right forearm, initial encounter; W45.8XXA Other foreign body or object entering through skin, initial encounter; F17.210 Nicotine dependence, cigarettes, uncomplicated; F14.10 Cocaine abuse, uncomplicated; F15.10 Other stimulant abuse, uncomplicated; Z81.4 Family history of other substance abuse and dependence; Z59.0 Homelessness
CPT/HCPCS: 10060; 10120; 99406; 99285; 96375; 96365; 96367; 36415 ×2; 87040; 87070; 87205; 82565; 85025; 87075; 87077; 80053; 87186; 80307; 80202; 73090 ×2; 01810; G0378 ×2; A6266; J2795; J2250; J3490 ×5; J3480 ×2; J3010; J1885; J2270 ×2; J2405; J7060 ×2; J7050 ×2; J2704; J3370 ×2; S0028 ×2; J2543 ×2; J1170

== ENCOUNTER 2019-11-18 21:44 | Emergency (ER) | payer SELFPAY ==
--- NOTE | 2019-11-18 22:11 | ER Document Report ---
ED General - General Chief Complaint: Accidental Overdose Stated Complaint: POSSIBLE OVERDOSE Time Seen by Provider: 11/18/19 21:58 Primary Care Provider: [facility] [Provider Group] - Follow up in 3-5 days KAROLINE JONES MD [COMMUNITY BASED STAFF] - Follow up in 3-5 days Notes: 34-year-old male presents with accidental overdose with heroin. Patient states he has not used heroin in 1 month and states he tried to take the same dose that he did prior. Patient denies any SI or HI. Patient states he was doing well for a month but then was arrested and got off his Suboxone schedule and states today was not a good day so he used heroin. Patient denies any other drug use or alcohol use today. Patient states he would like to go over to [facility]. Patient was given 2 mg of Narcan intranasal by EMS with no relief and then was given another 2 mg of Narcan IV with relief. TRAVEL OUTSIDE OF THE [place] IN LAST 30 DAYS: No - Related Data Allergies/Adverse Reactions: No Known Allergies Allergy (Verified 09/10/19 23:12) Home Medications: prozac 20 mg qhs Past Medical History - Social History Smoking Status: Current Every Day Smoker Frequency of alcohol use: None Drug Abuse: Cocaine, Heroin Family History: Reviewed & Not Pertinent, Other - Grandmother with schizophren ia, polysubstance abuse in multiple family members Patient has suicidal ideation: No Patient has homicidal ideation: No Renal/ Medical History: Denies: Hx Peritoneal Dialysis Skin Medical History: Reports Hx Cellulitis Psychiatric Medical History: Reports: Hx Depression - Immunizations Immunizations up to date: Yes Hx Diphtheria, Pertussis, Tetanus Vaccination: Yes - Patient states January 2018 Review of Systems - Review of Systems Notes: Constitutional: Negative for fever. HENT: Negative for sore throat. Eyes: Negative for visual changes. Cardiovascular: Negative for chest pain. Respiratory: Negative for shortness of breath. Gastrointestinal: Negative for abdominal pain, vomiting or diarrhea. Genitourinary: Negative for dysuria. Musculoskeletal: Negative for back pain. Skin: Negative for rash. Neurological: Negative for headaches, weakness or numbness. Psych: Negative for SI or HI. 10 point ROS negative except as marked above and in HPI. Physical Exam - Vital signs Vitals: Temp Pulse Resp BP Pulse Ox 97.8 F 79 17 128/90 H 97 11/18/19 22:07 03/11/20 22:07 11/18/19 22:07 11/18/19 22:07 11/18/19 22:07 - Notes Notes: GENERAL: Well-appearing, well-nourished and in no acute distress. HEAD: Atraumatic, normocephalic. EYES: Extraocular movements intact, sclera anicteric, conjunctiva are normal. NECK: Normal range of motion, supple without lymphadenopathy or JVD. LUNGS: Breath sounds clear to auscultation bilaterally and equal. No wheezes rales or rhonchi. HEART: Regular rate and rhythm without murmurs, rubs or gallops. ABDOMEN: Soft, nontender. No guarding, no rebound. No masses appreciated. EXTREMITIES: Normal range of motion, no pitting or edema. No clubbing or cyanosis. NEUROLOGICAL: Cranial nerves II through XII grossly intact. Normal speech, normal gait. PSYCH: Normal mood, normal affect. SKIN: Warm, Dry, normal turgor, no rashes or lesions noted. Course - Re-evaluation Re-evalutation: 11/18/19 34-year-old male with history of heroin abuse presents for accidental overdose of heroin. Patient was given 2 mg Narcan IN and another 2 mg Narcan IV with improvement in symptoms. Patient is alert and oriented. Nontoxic, well- appearing. Abdomen soft nontender. Lungs clear to auscultation bilaterally. Regular rate and rhythm. PE is otherwise unremarkable patient states he would like to go to [place] to get help. Patient denies any SI or HI. Lab work was initiated to medically clear patient. Patient will be observed for 2 to 3 hours. 11/18/19 22:10 Spoke to [facility] for available bed. Once pt is medically cleared in 2-3 hours, pt may go over there, they will hold bed. 11/19/19 UDS + opiates and cocaine. Pt medically cleared after observation for 2.5 hours. Pt had no further deterioration in condition and stayed alert and oriented. Pt to walk over to [facility] for further management/help. Return precautions given. Pt voices understanding and agrees with plan of care. - Vital Signs Vital signs: Temp Pulse Resp BP Pulse Ox 97.8 F 79 17 128/90 H 97 11/18/19 22:07 11/18/19 22:07 11/18/19 22:07 11/18/19 22:07 11/18/19 22:07 - Laboratory Result Diagrams: 11/18/19 22:30 11/18/19 22:30 Laboratory results interpreted by me: 11/18/19 11/18/19 11/18/19 22:30 22:30 22:30 Hgb 13.3 L Glucose 138 H Urine Protein 100 H Urine Urobilinogen 4.0 H Salicylates < 1.0 L Acetaminophen < 10 L Discharge - Discharge Clinical Impression: Polysubstance abuse Accidental overdose Qualifiers: Encounter type: initial encounter Qualified Code(s): T50.901A - Poisoning by unspecified drugs, medicaments and biological substances, accidental (unintentional), initial encounter Condition: Stable Disposition: HOME, SELF-CARE Additional Instructions: Please follow-up at [facility]. They are holding a bed for you. Return immediately to ER for any worsening symptoms, including chest pain, shortness of breath, dizziness, feeling like you are going to pass out, passing out, thoughts of wanting to hurt yourself, thoughts of wanting to hurt anyone else, fever, or any other symptoms that are concerning to you. Referrals: KAROLINE JONES MD [COMMUNITY BASED STAFF] - Follow up in 3-5 days [facility] [Provider Group] - Follow up in 3-5 days
[2019-11-18 22:50] LABS: ABSOLUTE EOSINOPHILS # (AUTO) 0.1 10^3/uL (0.0-0.6); ABSOLUTE LYMPHOCYTES (AUTO) 1.2 10^3/uL (0.5-4.7); ABSOLUTE MONOCYTES (AUTO) 0.4 10^3/uL (0.1-1.4); ABSOLUTE NEUT (AUTO) 4.1 10^3/uL (1.7-8.2); BASOPHILS % (AUTO) 0.6 % (0-2); EOSINOPHILS % (AUTO) 0.9 % (0-6); HEMATOCRIT 38.7 % (37.9-51.0); HEMOGLOBIN 13.3 g/dL (13.5-17.0); LYMPHOCYTES % (AUTO) 20.5 % (13-45); MEAN CORPUSCULAR HEMOGLOBIN 29.8 pg (27.0-33.4); MEAN CORPUSCULAR HGB CONC 34.5 g/dL (32.0-36.0); MEAN CORPUSCULAR VOLUME 87 fl (80-97); MONOCYTES % (AUTO) 7.5 % (3-13); PLATELET COUNT 216 10^3/uL (150-450); RED BLOOD COUNT 4.48 10^6/uL (4.35-5.55); RED CELL DISTRIBUTION WIDTH 13.9 % (11.5-14.0); SEGMENTED NEUTROPHILS % (AUTO) 70.5 % (42-78); TOTAL CELLS COUNTED % (AUTO) 100 %; WHITE BLOOD COUNT 5.8 10^3/uL (4.0-10.5)
[2019-11-18 23:01] LABS: ALBUMIN 4.1 g/dL (3.5-5.0); ALKALINE PHOSPHATASE 66 U/L (38-126); ANION GAP 7 (5-19); ASPARTATE AMINO TRANSFERASE 20 U/L (17-59); BILIRUBIN,DIRECT 0.3 mg/dL (0.0-0.4); BILIRUBIN,TOTAL 0.4 mg/dL (0.2-1.3); BLOOD UREA NITROGEN 16 mg/dL (7-20); CALCIUM 9.1 mg/dL (8.4-10.2); CARBON DIOXIDE 30 mmol/L (22-30); CHLORIDE 104 mmol/L (98-107); GLUCOSE 138 mg/dL (75-110); POTASSIUM 3.8 mmol/L (3.6-5.0); TOTAL PROTEIN 7.3 g/dL (6.3-8.2)
[2019-11-18 23:02] LABS: ACETAMINOPHEN < 10 ug/mL (10-30); ALCOHOL < 10 mg/dL (NONE DETECTED); SALICYLATE < 1.0 mg/dL (2.0-20.0)
[2019-11-18 23:22] LABS: APPEARANCE,URINE CLEAR; BILIRUBIN,URINE NEGATIVE (NEGATIVE); COLOR,URINE YELLOW; GLUCOSE, URINE NEGATIVE (NEGATIVE); KETONES,URINE NEGATIVE (NEGATIVE); LEUKOCYTE ESTERASE,URINE NEGATIVE (NEGATIVE); NITRITE,URINE NEGATIVE (NEGATIVE); PROTEIN,URINE 100 mg/dL (NEGATIVE); URINE SPECIFIC GRAVITY 1.023
[2019-11-18 23:42] LABS: ADD MANUAL MICROSCOPIC YES
[2019-11-18 23:43] LABS: RBC,URINE RARE /HPF; WBC,URINE RARE /HPF
[2019-11-18 23:52] LABS: URINE AMPHETAMINES SCREEN NEGATIVE; URINE BARBITURATES SCREEN NEGATIVE; URINE BENZODIAZEPINES SCREEN NEGATIVE; URINE METHADONE SCREEN NEGATIVE; URINE PHENCYCLIDINE SCREEN NEGATIVE
[2019-11-18 23:54] LABS: URINE COCAINE SCREEN UNCONFIRMED POSITIVE; URINE MARIJUANA (THC) SCREEN UNCONFIRMED POSITIVE
[2019-11-19 00:56] VITALS: BP 104/73
--- NOTE | 2019-11-19 09:59 | EKG REPORT ---
SEVERITY:- NORMAL ECG - SINUS RHYTHM : Confirmed by: Alex Mccoy 19-Nov-2019 09:58:38
== END 2019-11-19 00:55 | disposition home or self-care (01) ==
LOC: ER 21:44
DX: T40.1X1A Poisoning by heroin, accidental (unintentional), initial encounter (principal); X58.XXXA Exposure to other specified factors, initial encounter; F17.200 Nicotine dependence, unspecified, uncomplicated; F19.10 Other psychoactive substance abuse, uncomplicated
CPT/HCPCS: 36415; 80053; 80307; 81001; 85025; 93005; 93010; 99284

== ENCOUNTER 2019-11-22 18:07 | Emergency (ER) | payer SELFPAY ==
[2019-11-22] MEDS ORDERED: NICOTINE 21 MG/24 HR PATCH.TD24 TD ONE (20:07)
--- NOTE | 2019-11-22 20:23 | ER Document Report ---
Entered by BETHANY CROWLEY SCRIBE 11/22/191939 Acting as scribe for:EMMETT RAMSAY DO ED General - General Chief Complaint: Overdose Stated Complaint: POSSIBLE OVERDOSE Time Seen by Provider: 11/22/19 19:22 Information source: Patient Notes: 34-year-old male presents via EMS to the emergency department after a heroin overdose today. Patient was found by [employer] on the [facility] bathroom floor with multiple syringes around him. Patient was discharged from [facility] today at 11:30AM after a four day stay. Patient reports that he believes he did not overdose, just "passing out". Patient reports that he is homeless and is trying hard to be clean. Patient mentions that he does have suicidal ideation with no plan. Patient has no local family and is originally from [place], [place]. TRAVEL OUTSIDE OF THE [place] IN LAST 30 DAYS: No - Related Data Allergies/Adverse Reactions: No Known Allergies Allergy (Verified 09/10/19 23:12) Past Medical History - General Information source: Patient - Social History Smoking Status: Current Every Day Smoker Cigarette use (# per day): Yes Chew tobacco use (# tins/day): No Drug Abuse: Cocaine, Heroin, Marijuana Lives with: Homeless Family History: Reviewed & Not Pertinent, Other - Grandmother with schizophrenia, polysubstance abuse in multiple family members Patient has suicidal ideation: Yes Patient has homicidal ideation: No Skin Medical History: Reports Hx Cellulitis Psychiatric Medical History: Reports: Hx Depression Surgical Hx: Negative - Immunizations Immunizations up to date: Yes Hx Diphtheria, Pertussis, Tetanus Vaccination: Yes - Patient states January 2018 Review of Systems - Review of Systems Constitutional: No symptoms reported EENT: No symptoms reported Cardiovascular: See HPI, Syncope Respiratory: No symptoms reported Gastrointestinal: No symptoms reported Genitourinary: No symptoms reported Male Genitourinary: No symptoms reported Musculoskeletal: No symptoms reported Skin: No symptoms reported Hematologic/Lymphatic: No symptoms reported Neurological/Psychological: See HPI, Suicidal ideation -: Yes All other systems reviewed and negative Physical Exam - Vital signs Vitals: Temp Pulse Resp BP Pulse Ox 97.8 F 88 16 117/89 H 97 11/22/19 18:32 11/22/19 18:32 11/22/19 18:32 11/22/19 18:32 11/22/19 18:32 - Notes Notes: Physical Exam: General: Alert, appears depressed. Slow to answer questions. HEENT: Normocephalic. Atraumatic. PERRL. Extraocular movements intact. Oropharynx clear. Neck: Supple. Non-tender. Respiratory: No respiratory distress. Clear and equal breath sounds bilaterally. Cardiovascular: Regular rate and rhythm. Abdominal: Normal Inspection. Non-tender. No distension. Normal Bowel Sounds. Back: No gross abnormalities. Extremities: Moves all four extremities. Upper extremities: Normal ROM. Old scars from injections. Lower extremities: Normal inspection. No edema. Normal ROM. Neurological: Normal cognition. AAOx4. Normal speech. Psychological: Flat affect. Normal Mood. Skin: Warm. Dry. Normal color. Course - Re-evaluation Re-evalutation: 11/22/19 21:04 MDM 34 year old is here after being found on floor in bathroom at [facility]. Used heroin without intent of self injury but now reportedly feels suicidal. He is awake and alert and we will contact [facility] as he just was discharged from there (11:30 am today). After the nursing staff contacted [facility] they will accept him back. He is medically stable for transport. - Vital Signs Vital signs: Temp Pulse Resp BP Pulse Ox 97.8 F 88 16 117/89 H 97 11/22/19 18:32 11/22/19 18:32 11/22/19 18:32 11/22/19 18:32 11/22/19 18:32 Discharge - Discharge Clinical Impression: Heroin abuse Depressed Qualifiers: Depression Type: other depression Qualified Code(s): F32.89 - Other specified depressive episodes Condition: Fair Disposition: PSYCH HOSP/UNIT Instructions: Narcotic Abuse ([facility]), Depression ([facility]) Additional Instructions: You should return here for thoughts of self harm or other problems or concerns. Stop smoking and stop using marijuania and stop using heroin. I personally performed the services described in the documentation, reviewed and edited the documentation which was dictated to the scribe in my presence, and it accurately records my words and actions.
[2019-11-22 21:08] VITALS: BP 100/74
== END 2019-11-22 21:05 ==
LOC: ER 18:07
DX: T40.1X1A Poisoning by heroin, accidental (unintentional), initial encounter (principal); R45.851 Suicidal ideations; F32.89 Other specified depressive episodes; X58.XXXA Exposure to other specified factors, initial encounter; Y92.512 Supermarket, store or market as the place of occurrence of the external cause; Z59.0 Homelessness; F17.210 Nicotine dependence, cigarettes, uncomplicated
CPT/HCPCS: 99284

== ENCOUNTER 2020-07-19 03:44 | Emergency (ER) | payer SELFPAY ==
[2020-07-19] MEDS ORDERED: KETOROLAC TROMETHAMINE INJ/PF 30 MG/1 ML SDV ONE (05:03)
[2020-07-19] MEDS ORDERED: ONDANSETRON HCL INJ/PF 4 MG/2 ML SDV ONE (05:05)
[2020-07-19] MEDS ORDERED: MORPHINE SULFATE 10 MG/ML INJ ONE (05:07)
[2020-07-19] MEDS ORDERED: KETAMINE HCL INJ 500 MG/10 ML VIAL ONE (05:12)
[2020-07-19] MEDS ORDERED: LORAZEPAM INJ 2 MG/1 ML VIAL ONE (05:15)
--- NOTE | 2020-07-19 05:26 | ER Document Report ---
ED General - General Chief Complaint: Drug Abuse Stated Complaint: SUBSTANCE ABUSE Time Seen by Provider: 07/19/20 03:56 Mode of Arrival: Medic Information source: Emergency Med Personnel Notes: 07/19/20 03:57 - ED Nursing Note by EB BUCHANAN Accyanely Num: [id number] : 1985 Patient Age: 35 Assumed care of 35 yo male from ems who state pt was running in traffic down a road and was with local PD (r/o ? current Meth use). Pt is currently medicated with Ketamine and is non verbal, will ctm MY NOTES 35-year-old male running down the road as per medic Oswaldo after he had shot up an unknown amount of meth/ heroin and was complaining of paranoid type delusions. Med Oswaldo had to inject a total of 400 of ketamine in order to quiet the patient.Patient upon arrival was placed in room 16, he was placed in 4 point restraint which proved unable to hold him .. twice he placed himself on the floor and needed more sedation and hard restraints. TRAVEL OUTSIDE OF THE [place] IN LAST 30 DAYS: No - HPI Onset: This morning Onset/Duration: Sudden, Persistent Quality of pain: Other - unable to assess Severity: None Associated symptoms: Weakness Exacerbated by: Movement Relieved by: Other - unable to assess b/o sensorium drowsiness Similar symptoms previously: No - unknown at this time/computers are down during his initial [id number] Recently seen / treated by doctor: No - unknown - Related Data Allergies/Adverse Reactions: No Known Allergies Allergy (Verified 09/10/19 23:12) Past Medical History - General Information source: Emergency Med Personnel - Social History Smoking Status: Unknown if Ever Smoked Cigarette use (# per day): No Chew tobacco use (# tins/day): No Smoking Education Provided: No Frequency of alcohol use: unknown Drug Abuse: Heroin, Methamphetamine Lives with: Other - unknown Family History: Reviewed & Not Pertinent, Other - Grandmother with schizophrenia, polysubstance abuse in multiple family members Patient has suicidal ideation: No - unknown Patient has homicidal ideation: No - unknown Renal/ Medical History: Denies: Hx Peritoneal Dialysis Skin Medical History: Reports Hx Cellulitis Psychiatric Medical History: Reports: Hx Depression - Immunizations Immunizations up to date: Yes Hx Diphtheria, Pertussis, Tetanus Vaccination: Yes - Patient states January 2018 Review of Systems - Review of Systems -: Yes ROS unobtainable due to patient's medical condition Constitutional: See HPI, Weakness EENT: No symptoms reported Cardiovascular: No symptoms reported Respiratory: No symptoms reported Gastrointestinal: No symptoms reported Genitourinary: No symptoms reported Male Genitourinary: No symptoms reported Musculoskeletal: No symptoms reported Skin: No symptoms reported Hematologic/Lymphatic: No symptoms reported Neurological/Psychological: See HPI, Confusion, Hallucinations, Sensory change, Weakness -: Yes All other systems reviewed and negative Physical Exam - Vital signs Vitals: BP 123/80 07/19/20 03:46 Interpretation: Normal - General General appearance: Appears well, Alert - HEENT Head: Normocephalic, Atraumatic Conjunctiva: Icteric Extraocular movements intact: Yes Pupils: Pinpoint - Respiratory Respiratory status: No respiratory distress Chest status: Nontender Breath sounds: Normal Chest palpation: Normal - Cardiovascular Rhythm: Regular Heart sounds: Normal auscultation Murmur: No - Abdominal Inspection: Normal Distension: No distension Bowel sounds: Normal Tenderness: Nontender Organomegaly: No organomegaly - Rectal Prostate: Other - deferred - Genitourinary Scrotum: Other - deferred - Back Back: Normal, Nontender - Extremities General upper extremity: Normal inspection, Nontender, Normal color, Normal ROM, Normal temperature General lower extremity: Normal inspection, Nontender, Normal color, Normal ROM, Normal temperature, Normal weight bearing. No: Ruby's sign - Neurological Neuro grossly intact: No - Patient staring into space and yawning and in four- point restraints Cognition: Confused Orientation: Disoriented to person, Disoriented to place, Disoriented to events Kajal Coma Scale Eye Opening: Spontaneous Kajal Coma Scale Verbal: Confused Kajal Coma Scale Motor: Obeys Commands [place] Coma Scale Total: 14 Speech: Dysarthria Motor strength normal: LUE, RUE, LLE, RLE Sensory: Normal - appears to know how to get out of restraints and gurney - Psychological Associated symptoms: Confused - Skin Skin Temperature: Warm Skin Moisture: Dry Skin Color: Normal Course - Vital Signs Vital signs: Temp Pulse Resp BP Pulse Ox 14 118/81 97 07/19/20 12:45 07/19/20 12:45 07/19/20 12:45 - Laboratory Result Diagrams: 07/19/20 04:20 07/19/20 04:20 Laboratory results interpreted by me: 07/19/20 07/19/20 07/19/20 04:20 04:20 04:20 WBC 11.3 H RBC 4.26 L Hgb 12.9 L Hct 37.7 L Lymph % (Auto) 11.2 L Absolute Neuts (auto) 9.0 H Seg Neutrophils % 79.4 H BUN 27 H Creatinine 1.26 H TSH 4.88 H Salicylates < 1.0 L Acetaminophen < 10 L - EKG Interpretation by Me EKG shows normal: Sinus rhythm Rate: Normal Rhythm: NSR - With 97 heart rate and no ST elevation no ST depression no T wave depression no T wave elevation and axis within normal limits and this was read by myself and also I agree with the EKG machine. Discharge - Discharge Clinical Impression: Overdose Qualifiers: Encounter type: initial encounter Injury intent: undetermined intent Qualified Code(s): T50.904A - Poisoning by unspecified drugs, medicaments and biological substances, undetermined, initial encounter Condition: Stable Disposition: OTHER Additional Instructions: ivc hold for now b/o danger to self and others
[2020-07-19 06:03] LABS: ABSOLUTE BASOPHILS # (AUTO) 0.1 10^3/uL (0.0-0.2); ABSOLUTE EOSINOPHILS # (AUTO) 0.1 10^3/uL (0.0-0.6); ABSOLUTE LYMPHOCYTES (AUTO) 1.3 10^3/uL (0.5-4.7); ABSOLUTE MONOCYTES (AUTO) 0.9 10^3/uL (0.1-1.4); BASOPHILS % (AUTO) 0.4 % (0-2); HEMATOCRIT 37.7 % (37.9-51.0); HEMOGLOBIN 12.9 g/dL (13.5-17.0); LYMPHOCYTES % (AUTO) 11.2 % (13-45); MEAN CORPUSCULAR HEMOGLOBIN 30.3 pg (27.0-33.4); MEAN CORPUSCULAR HGB CONC 34.1 g/dL (32.0-36.0); MEAN CORPUSCULAR VOLUME 89 fl (80-97); PLATELET COUNT 216 10^3/uL (150-450); RED BLOOD COUNT 4.26 10^6/uL (4.35-5.55); RED CELL DISTRIBUTION WIDTH 13.6 % (11.5-14.0); SEGMENTED NEUTROPHILS % (AUTO) 79.4 % (42-78); TOTAL CELLS COUNTED % (AUTO) 100 %; WHITE BLOOD COUNT 11.3 10^3/uL (4.0-10.5)
[2020-07-19 06:04] LABS: ACETAMINOPHEN < 10 ug/mL (10-30); ALBUMIN 4.7 g/dL (3.5-5.0); ALCOHOL < 10 mg/dL (NONE DETECTED); ALKALINE PHOSPHATASE 63 U/L (38-126); ANION GAP 15 (5-19); ASPARTATE AMINO TRANSFERASE 36 U/L (17-59); BILIRUBIN,DIRECT 0.1 mg/dL (0.0-0.4); BILIRUBIN,TOTAL 0.6 mg/dL (0.2-1.3); BLOOD UREA NITROGEN 27 mg/dL (7-20); CALCIUM 9.9 mg/dL (8.4-10.2); CARBON DIOXIDE 25 mmol/L (22-30); CHLORIDE 102 mmol/L (98-107); GLUCOSE 85 mg/dL (75-110); POTASSIUM 3.6 mmol/L (3.6-5.0); SALICYLATE < 1.0 mg/dL (2.0-20.0); TOTAL PROTEIN 7.8 g/dL (6.3-8.2)
--- NOTE | 2020-07-19 17:19 | EKG REPORT ---
SEVERITY:- BORDERLINE ECG - SINUS RHYTHM BORDERLINE PROLONGED QT INTERVAL : Confirmed by: Alex Mccoy 19-Jul-2020 17:18:41
--- NOTE | 2020-07-19 17:27 | ER Document Report ---
Doctor's Note Notes: 07/19/20 17:27 Patient reevaluated at this time. He is alert, awake, answering questions appropriately. He has been cleared medically and also from mental health. He will be discharged at this time.
[2020-07-19 17:57] VITALS: BP 123/91
== END 2020-07-19 17:57 | disposition other institution (70) ==
LOC: ER 03:44
DX: F19.10 Other psychoactive substance abuse, uncomplicated (principal); T43.621A Poisoning by amphetamines, accidental (unintentional), initial encounter; T40.1X1A Poisoning by heroin, accidental (unintentional), initial encounter; R53.1 Weakness; Z78.1 Physical restraint status
CPT/HCPCS: 36415; 80053; 80307; 84443; 85025; 93005; 93010; 99285

== ENCOUNTER 2020-09-11 07:52 | Emergency (ER) | payer SELFPAY ==
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
--- NOTE | 2020-09-11 09:44 | EKG REPORT ---
SEVERITY:- BORDERLINE ECG - SINUS RHYTHM BORDERLINE INFERIOR Q WAVES : Confirmed by: Gokul Julio MD 11-Sep-2020 09:43:25
[2020-09-11 09:57] LABS: ALKALINE PHOSPHATASE 54 U/L (38-126); ANION GAP 7 (5-19); ASPARTATE AMINO TRANSFERASE 29 U/L (17-59); BILIRUBIN,DIRECT 0.2 mg/dL (0.0-0.4); BILIRUBIN,TOTAL 0.7 mg/dL (0.2-1.3); BLOOD UREA NITROGEN 24 mg/dL (7-20); CALCIUM 9.3 mg/dL (8.4-10.2); CARBON DIOXIDE 30 mmol/L (22-30); CHLORIDE 101 mmol/L (98-107); GLUCOSE 129 mg/dL (75-110); POTASSIUM 4.1 mmol/L (3.6-5.0); TOTAL PROTEIN 7.1 g/dL (6.3-8.2)
[2020-09-11 09:59] LABS: ACETAMINOPHEN < 10 ug/mL (10-30); ALCOHOL < 10 mg/dL (NONE DETECTED); SALICYLATE < 1.0 mg/dL (2.0-20.0)
[2020-09-11 10:07] LABS: ABSOLUTE BASOPHILS # (AUTO) 0.1 10^3/uL (0.0-0.2); ABSOLUTE EOSINOPHILS # (AUTO) 0.2 10^3/uL (0.0-0.6); ABSOLUTE LYMPHOCYTES (AUTO) 1.5 10^3/uL (0.5-4.7); ABSOLUTE MONOCYTES (AUTO) 0.6 10^3/uL (0.1-1.4); ABSOLUTE NEUT (AUTO) 5.2 10^3/uL (1.7-8.2); BASOPHILS % (AUTO) 0.7 % (0-2); EOSINOPHILS % (AUTO) 2.4 % (0-6); HEMATOCRIT 35.3 % (37.9-51.0); HEMOGLOBIN 12.3 g/dL (13.5-17.0); LYMPHOCYTES % (AUTO) 20.3 % (13-45); MEAN CORPUSCULAR HEMOGLOBIN 30.4 pg (27.0-33.4); MEAN CORPUSCULAR HGB CONC 34.8 g/dL (32.0-36.0); MEAN CORPUSCULAR VOLUME 87 fl (80-97); MONOCYTES % (AUTO) 7.6 % (3-13); PLATELET COUNT 238 10^3/uL (150-450); RED BLOOD COUNT 4.05 10^6/uL (4.35-5.55); RED CELL DISTRIBUTION WIDTH 12.9 % (11.5-14.0); TOTAL CELLS COUNTED % (AUTO) 100 %; WHITE BLOOD COUNT 7.5 10^3/uL (4.0-10.5)
[2020-09-11 10:57] LABS: APPEARANCE,URINE TURBID; BILIRUBIN,URINE NEGATIVE (NEGATIVE); COLOR,URINE YELLOW; GLUCOSE, URINE NEGATIVE (NEGATIVE); KETONES,URINE NEGATIVE (NEGATIVE); LEUKOCYTE ESTERASE,URINE NEGATIVE (NEGATIVE); NITRITE,URINE NEGATIVE (NEGATIVE); PROTEIN,URINE NEGATIVE (NEGATIVE); URINE SPECIFIC GRAVITY 1.032
[2020-09-11 11:12] LABS: URINE BARBITURATES SCREEN NEGATIVE; URINE BENZODIAZEPINES SCREEN NEGATIVE; URINE COCAINE SCREEN NEGATIVE; URINE MARIJUANA (THC) SCREEN NEGATIVE; URINE METHADONE SCREEN NEGATIVE; URINE PHENCYCLIDINE SCREEN NEGATIVE
[2020-09-11 12:05] VITALS: BP 128/84
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
== END 2020-09-11 12:38 | disposition left against medical advice (07) ==
LOC: ER 07:52
DX: F32.0 Major depressive disorder, single episode, mild (principal); F17.200 Nicotine dependence, unspecified, uncomplicated; R45.851 Suicidal ideations
CPT/HCPCS: 36415; 80053; 80307; 81001; 85025; 93005; 93010; 99281

== ENCOUNTER 2020-09-17 23:08 | Emergency (ER) | payer SELFPAY ==
--- NOTE | 2020-09-18 00:20 | ER Document Report ---
ED Medical Screen (RME) - General Chief Complaint: Abscess Stated Complaint: ULCERS TO ARA AND LEGS Time Seen by Provider: 09/18/20 00:16 TRAVEL OUTSIDE OF THE [place] 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 Patient states his symptoms worsened yesterday. He also reports leg wounds that have been present for the past week but have been improving slightly. He denies fever. - Related Data Allergies/Adverse Reactions: No Known Allergies Allergy (Verified 09/11/20 08:34) Past Medical History - Past Medical History Cardiac Medical History: Denies: Hx Atrial Fibrillation, Hx Congestive Heart Failure, Hx Heart Attack, Hx Hypercholesterolemia, Hx Hypertension Pulmonary Medical History: Denies: Hx Asthma, Hx Bronchitis, Hx COPD, Hx Pneumonia, Hx Tuberculosis Neurological Medical History: Denies: Hx Migraine, Hx Seizures Endocrine Medical History: Denies: Hx Diabetes Mellitus Type 1, Hx Diabetes Angelique litus Type 2 Renal/ Medical History: Denies: Hx End Stage Renal Disease, Hx Kidney Stones, Hx Peritoneal Dialysis GI Medical History: Denies: Hx Gastroesophageal Reflux Disease, Hx Hiatal Hernia, Hx Ulcer Musculoskeltal Medical History: Denies Hx Arthritis Skin Medical History: Reports Hx Cellulitis Psychiatric Medical History: Reports: Hx Depression Denies: Hx Attention Deficit Hyperactivity Disorder, Hx Bipolar Disorder, Hx Schizophrenia Past Surgical History: Denies: Hx Abdominal Surgery, Hx Appendectomy, Hx Bowel Surgery, Hx Cardiac Catheterization, Hx Cardiac Surgery, Hx Cholecystectomy, Hx Genitourinary Surgery, Hx Kidney (Renal Surgery), Hx Neurologic Surgery, Hx Nose Surgery, Hx Open Heart Surgery, Hx Oral Surgery, Hx Orthopedic Surgery, Hx Pancreatic Surgery, Hx Pituitary Surgery, Hx Rectal Surgery, Hx Testicular Surgery, Hx Thyroid Surgery, Hx Tonsillectomy, Hx Urinary Tract Surgery, Hx Vascular Surgery - Immunizations Immunizations up to date: Yes Hx Diphtheria, Pertussis, Tetanus Vaccination: Yes - Patient states January 2018 Physical Exam - Vital signs Vitals: Temp Pulse Resp BP Pulse Ox 98.4 F 96 18 164/95 H 97 09/17/20 23:24 09/17/20 23:24 09/17/20 23:24 09/17/20 23:24 09/17/20 23:24 - Cardiovascular Pulses: Normal: Radial - Extremities Hand: Other - Right hand swelling with an ulcerated wound to the medial palmar aspect Course - Re-evaluation Re-evalutation: I have greeted and performed a rapid initial assessment of this patient. A comprehensive ED assessment and evaluation of the patient, analysis of test results and completion of medical decision making process will be conducted by an additional ED providers. - Vital Signs Vital signs: Temp Pulse Resp BP Pulse Ox 98.4 F 96 18 164/95 H 97 09/17/20 23:24 09/17/20 23:24 09/17/20 23:24 09/17/20 23:24 09/17/20 23:24
--- NOTE | 2020-09-18 01:38 | RADIOLOGY REPORT (SQ) ---
EXAM DESCRIPTION: XR HAND 3 OR MORE VIEWS COMPLETED DATE/TME: 09/18/2020 01:15 CLINICAL HISTORY: 35 years, Male, right hand swelling COMPARISON: None. NUMBER OF VIEWS: 3 TECHNIQUE: Three views of the right hand were obtained. LIMITATIONS: None. FINDINGS: Three views of the right hand reveal no acute bone or joint abnormality. Chronic appearing fracture deformities of the fifth metacarpal and fifth proximal phalanx are noted. There is no significant degenerative change. No soft tissue gas or opaque foreign body. IMPRESSION: No acute abnormality as above. copyright 2010 [employer]- All Rights Reserved
[2020-09-18] MEDS ORDERED: CLINDAMYCIN 900 MG/D5W RTU 900 MG/50 ML RTUPB IV ONE (02:11)
[2020-09-18] MEDS ORDERED: BACITRACIN ZINC OINTMENT 15 GM TP ONE (02:11)
[2020-09-18] MEDS ORDERED: KETOROLAC TROMETHAMINE INJ/PF 30 MG/1 ML SDV IV ONE (02:12)
[2020-09-18 02:16] LABS: ABSOLUTE BASOPHILS # (AUTO) 0.1 10^3/uL (0.0-0.2); ABSOLUTE EOSINOPHILS # (AUTO) 0.1 10^3/uL (0.0-0.6); ABSOLUTE LYMPHOCYTES (AUTO) 1.2 10^3/uL (0.5-4.7); ABSOLUTE MONOCYTES (AUTO) 0.6 10^3/uL (0.1-1.4); ABSOLUTE NEUT (AUTO) 10.4 10^3/uL (1.7-8.2); BASOPHILS % (AUTO) 0.6 % (0-2); EOSINOPHILS % (AUTO) 0.9 % (0-6); HEMATOCRIT 37.1 % (37.9-51.0); HEMOGLOBIN 12.9 g/dL (13.5-17.0); LYMPHOCYTES % (AUTO) 9.4 % (13-45); MEAN CORPUSCULAR HEMOGLOBIN 30.1 pg (27.0-33.4); MEAN CORPUSCULAR HGB CONC 34.7 g/dL (32.0-36.0); MEAN CORPUSCULAR VOLUME 87 fl (80-97); PLATELET COUNT 227 10^3/uL (150-450); RED BLOOD COUNT 4.28 10^6/uL (4.35-5.55); SEGMENTED NEUTROPHILS % (AUTO) 84.1 % (42-78); TOTAL CELLS COUNTED % (AUTO) 100 %; WHITE BLOOD COUNT 12.4 10^3/uL (4.0-10.5)
--- NOTE | 2020-09-18 02:20 | ER Document Report ---
ED General - General Chief Complaint: Abscess Stated Complaint: HAND PAIN Time Seen by Provider: 09/18/20 00:16 TRAVEL OUTSIDE OF THE [place] IN LAST 30 DAYS: No - HPI Context: Chief Complaint: [Skin ulcer [This is a 35-year-old male presenting to the emergency department complaining of a ulceration that is present on the palmar surface of his right hand. Patient states he has a history of IV drug abuse but has not used in the past 3 months. 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 Patient states he also has some ulcerations on his legs but they are not quite as bad ] History obtained from [patient] Symptoms began:[Approximately 1 week ago] Onset: [Gradual] Timing: [Gradual] Quality: [Burning] Intensity: [Severe] Location: [Right hand and bilateral legs] Radiation: [Denies] [The pain does not migrate to a new location.] Aggravating factors: [none] Relieving factors: [none] [Denies] SOB [Denies] nausea [Denies] vomiting [Denies] sweats [Denies] fever [Denies] cough [Denies] calf or leg swelling or pain - Related Data Allergies/Adverse Reactions: No Known Allergies Allergy (Verified 09/11/20 08:34) Past Medical History - General Information source: Patient - Social History Smoking Status: Current Every Day Smoker Family History: Reviewed & Not Pertinent, Other - Grandmother with schizophrenia, polysubstance abuse in multiple family members - Past Medical History Cardiac Medical History: Denies: Hx Atrial Fibrillation, Hx Congestive Heart Failure, Hx Heart Attack, Hx Hypercholesterolemia, Hx Hypertension Pulmonary Medical History: Denies: Hx Asthma, Hx Bronchitis, Hx COPD, Hx Pneumonia, Hx Tuberculosis Neurological Medical History: Denies: Hx Migraine, Hx Seizures Endocrine Medical History: Denies: Hx Diabetes Mellitus Type 1, Hx Diabetes Mellitus Type 2 Renal/ Medical History: Denies: Hx End Stage Renal Disease, Hx Kidney Stones, Hx Peritoneal Dialysis GI Medical History: Denies: Hx Gastroesophageal Reflux Disease, Hx Hiatal Hernia, Hx Ulcer Musculoskeletal Medical History: Denies Hx Arthritis Skin Medical History: Reports Hx Cellulitis Psychiatric Medical History: Reports: Hx Depression Denies: Hx Attention Deficit Hyperactivity Disorder, Hx Bipolar Disorder, Hx Schizophrenia Past Surgical History: Denies: Hx Abdominal Surgery, Hx Appendectomy, Hx Bowel Surgery, Hx Cardiac Catheterization, Hx Cardiac Surgery, Hx Cholecystectomy, Hx Genitourinary Surgery, Hx Kidney (Renal Surgery), Hx Neurologic Surgery, Hx Nose Surgery, Hx Open Heart Surgery, Hx Oral Surgery, Hx Orthopedic Surgery, Hx Pancreatic Surgery, Hx Pituitary Surgery, Hx Rectal Surgery, Hx Testicular Surgery, Hx Thyroid Surgery, Hx Tonsillectomy, Hx Urinary Tract Surgery, Hx Vascular Surgery - Immunizations Immunizations up to date: Yes Hx Diphtheria, Pertussis, Tetanus Vaccination: Yes - Patient states January 2018 Review of Systems - Review of Systems Notes: Review of systems as below unless otherwise stated in HPI. CONSTITUTIONAL [No] fever, [No] chills. EYES [No] eye pain. ENT [No] URI symptoms, [No] sore throat, [No] ear pain. CARDIOVASCULAR [No] chest pain, [No] palpitations, [No] edema. RESPIRATORY [No] Cough, [No] SOB, [No] wheezing. GASTROINTESTINAL [No] abdominal pain, [No] nausea, [No] Diarrhea, [No] Vomiting, [No] constipation, [No] melena, [No] rectal bleeding. GENITOURINARY [No] dysuria, [No] urinary frequency, [No] hematuria, [No] urinary urgency MUSCULOSKELETAL [No] Back pain. SKIN Positive ulcerations NEUROLOGIC [No] Headache, [No] recent seizures, [No] paralysis,[No] parathesias. ENDOCRINE [No] polyuria. HEMO/LYMPATIC [No] easy brusing PSYCHIATRIC [No] depression. Physical Exam - Vital signs Vitals: Temp Pulse Resp BP Pulse Ox 98.4 F 96 18 164/95 H 97 09/17/20 23:24 09/17/20 23:24 09/17/20 23:24 09/17/20 23:24 09/17/20 23:24 - Notes Notes: CONSTITUTIONAL [Vital signs reviewed, Patient appears comfortable, Alert and oriented X 3, Normal stature.] HEAD [Atraumatic, Normocephalic.] EYES [Eyes are normal to inspection, No discharge from eyes, Extraocular muscles in tact, Sclera are normal, Conjunctiva are normal.] ENT [External ears normal to inspection, Nose examination normal, Mouth normal to inspection.] NECK [Normal ROM, No jugular venous distention, No meningeal signs, ] RESPIRATORY CHEST [Chest is nontender, Breath sounds normal, No respiratory distress.] CARDIOVASCULAR [RRR, No murmurs, Normal S1 S2, No rub, No gallop.] ABDOMEN [Abdomen is nontender, No pulsatile masses, No other masses, Bowel sounds normal, No distension, No peritoneal signs, No hernias.] BACK [There is no CVA Tenderness, There is no tenderness to palpation, Normal inspection.] UPPER EXTREMITY No cyanosis, No clubbing, No edema, LOWER EXTREMITY No cyanosis, No clubbing, No edema, No calf tenderness, NEURO [No focal motor deficits, No focal sensory deficits, Speech normal.] SKIN Skin exam is significant for a 2 cm in diameter superficial ulceration that is present on the hyperthenar prominence of the patient's right hand. Ulceration has some surrounding ecchymosis. Patient appears to have multiple neurotic excoriations present on his face and upper extremities] PSYCHIATRIC Anxious affect. ] Course - Vital Signs Vital signs: Temp Pulse Resp BP Pulse Ox 98.4 F 96 18 164/95 H 97 09/17/20 23:24 09/17/20 23:24 09/17/20 23:24 09/17/20 23:24 09/17/20 23:24 - Laboratory Results Result Diagrams: 09/18/20 02:00 09/18/20 02:00 Laboratory Results Interpreted: 09/18/20 02:00 WBC 12.4 H RBC 4.28 L Hgb 12.9 L Hct 37.1 L Lymph % (Auto) 9.4 L Absolute Neuts (auto) 10.4 H Seg Neutrophils % 84.1 H Critical Laboratory Results Reviewed: No Critical Results Attending or Supervising Physician who Reviewed Labs: SAMANTHA BOLANOS IV - Radiology Results Critical Radiology Results Reviewed: No Critical Results Attending or Supervising Physician who Reviewed Radiology: SAMANTHA BOLANOS IV Discharge - Discharge Clinical Impression: Skin ulceration Qualifiers: Non-pressure ulcer stage: limited to breakdown of skin Qualified Code(s): L98.491 - Non-pressure chronic ulcer of skin of other sites limited to breakdown of skin Condition: Stable Disposition: HOME, SELF-CARE Additional Instructions: Return to the Emergency Department without delay if any worse. HOME CARE INSTRUCTIONS & INFORMATION: Thank you for choosing us for your medical needs. We hope you're satisfied with the care you received. After you leave, you must properly care for your problem and, at the same time, observe its progress. Any condition can change. Some illnesses can change rapidly over hours or days. If your condition worsens, return to the Emergency Department or see your physician promptly. ABOUT YOUR X-RAYS AND EKG'S: If you had an EKG or X-rays taken, they have been read by the Emergency Physician. The X-rays and EKG's will also be read by a Radiologist or Diesel Bus Mechanic within 24 hours. If discrepancies are noted, you will be notified by telephone. Please be certain the ED has a correct telephone number & address where you can be reached. Also, realize that some fractures or abnormalities do not show up on initial X-rays. If your symptoms continue, see your physician. ABOUT YOUR LABORATORY TEST: If you had laboratory tests, the results have been reviewed by the Emergency Physician. Some test results (for example cultures) may not be available for several days. You will be contacted if any test result shows you need additional treatment. Please be certain the ED has a correct telephone number and address where you can be reached. ABOUT YOUR MEDICATIONS: You will receive instructions on how to take your medicine on the prescription label you receive. Additional information may be provided by the Pharmacy. If you have questions afterwards, call the ED for clarification or further instructions. Some prescribed medications may cause drowsiness. Do not perform tasks such as driving a car or operating machinery without consulting your Pharmacist. If you feel you need a refill of pain medication, your condition will need re-evaluation. Please do not call for a refill of any medication. ABOUT YOUR SIGNATURE: Signature of this document acknowledges to followin. Understanding that you received emergency treatment and that you may be released before al medical problems are known or treated. Please be certain the ED has a correct phone number & address where you can be reached. 2. Acknowledgement that you will arrange for follow-up care as recommended. 3. Authorization for the Emergency Physician to provide information to your follow-up Physician in order to maximize your care. AT ANY TIME, IF YOUR SYMPTOMS CHANGE SIGNIFICANTLY OR WORSEN OR YOU DEVELOP NEW SYMPTOMS, RETURN TO THE EMERGENCY DEPARTMENT IMMEDIATELY FOR RE-EVALUATION. OUR GOAL IS TO PROVIDE EXCELLENT MEDICAL CARE! WE HOPE THAT WE HAVE MET YOUR EXPECTATIONS DURING YOUR EMERGENCY DEPARTMENT VISIT AND THAT YOU FEEL YOU HAVE RECEIVED EXCELLENT CARE! Prescriptions: Clindamycin HCl [Cleocin 150 mg Capsule] 450 mg PO TID 7 Days #63 capsule Referrals: CHERYLE MEIER MD [HONORARY] - Follow up as needed
[2020-09-18 02:39] LABS: ALBUMIN 4.3 g/dL (3.5-5.0); ALKALINE PHOSPHATASE 68 U/L (38-126); ANION GAP 9 (5-19); ASPARTATE AMINO TRANSFERASE 29 U/L (17-59); BILIRUBIN,DIRECT 0.4 mg/dL (0.0-0.4); BILIRUBIN,TOTAL 0.6 mg/dL (0.2-1.3); BLOOD UREA NITROGEN 19 mg/dL (7-20); CALCIUM 9.4 mg/dL (8.4-10.2); CARBON DIOXIDE 27 mmol/L (22-30); CHLORIDE 103 mmol/L (98-107); GLUCOSE 101 mg/dL (75-110); POTASSIUM 3.8 mmol/L (3.6-5.0); TOTAL PROTEIN 7.8 g/dL (6.3-8.2)
[2020-09-18 03:51] VITALS: BP 135/71
== END 2020-09-18 04:21 | disposition home or self-care (01) ==
LOC: ER 23:08
DX: L98.491 Non-pressure chronic ulcer of skin of other sites limited to breakdown of skin (principal); F17.200 Nicotine dependence, unspecified, uncomplicated
CPT/HCPCS: 99284; 96375; 96365; 36415; 87040; 87070; 87205; 85025; 87075; 87077; 80053; 73130; J3490; J1885

== ENCOUNTER 2020-09-22 11:31 | Emergency (ER) | payer SELFPAY ==
[2020-09-22 11:45] VITALS: BP 140/96
[2020-09-22] MEDS ORDERED: LIDOCAINE 1% INJ-PF (10 MG/ML) 30 ML SDV IM ONE (11:50)
[2020-09-22] MEDS ORDERED: CEFTRIAXONE INJ 1000 MG VIAL IM ONE (11:50)
--- NOTE | 2020-09-22 11:52 | ER Document Report ---
HPI - HPI Time Seen by Provider: 09/22/20 11:37 Pain Level: Denies Notes: 35-year-old male patient presented to the emergency department concern for ulceration to his right hand. He states he was seen in this emergency department 1 week ago for this, he was given IV antibiotics and discharged home with a prescription for clindamycin. Patient reports he did not have the medication filled as he could not afford it. Patient reports he now has the money and wants to get a new prescription. He denies any fever or chills. He reports the area is actually looking much improved. - ROS Systems Reviewed and Negative: Yes All other systems reviewed and negative - REPRODUCTIVE Reproductive: DENIES: : - DERM Skin Problems: Ulcer Past Medical History - General Information source: Patient - Social History Smoking Status: Current Every Day Smoker Frequency of alcohol use: Occasional Drug Abuse: Other - former IVDU Family History: Reviewed & Not Pertinent, Other - Grandmother with schizophrenia, polysubstance abuse in multiple family members Skin Medical History: Reports Hx Cellulitis Psychiatric Medical History: Reports: Hx Depression Surgical Hx: Negative - Immunizations Immunizations up to date: Yes Hx Diphtheria, Pertussis, Tetanus Vaccination: Yes - Patient states January 2018 Vertical Provider Document - CONSTITUTIONAL Notes: PHYSICAL EXAMINATION: GENERAL: Well-appearing, well-nourished and in no acute distress. HEAD: Atraumatic, normocephalic. EYES: Pupils equal round extraocular movements intact, conjunctiva are normal. ENT: Nares patent NECK: Normal range of motion LUNGS: No respiratory distress Musculoskeletal: Normal range of motion NEUROLOGICAL: Normal speech, normal gait. PSYCH: Normal mood, normal affect. SKIN: Skin exam is significant for a 2 cm in diameter superficial ulceration that is present on the hyperthenar prominence of the patient's right hand. Ulceration has some surrounding ecchymosis. Patient appears to have multiple neurotic excoriations present on his face and upper extremities - INFECTION CONTROL TRAVEL OUTSIDE OF THE [place] IN LAST 30 DAYS: No Course - Re-evaluation Re-evalutation: 09/22/20 11:[address] Concepcion. Patient did not have antibiotics filled from last week that were prescribed. His culture grew out group A streptococcus. Recommendation received to give ceftriaxone IM and start the patient on Keflex 500 4 times daily for 7 days. Unfortunately the patient adamantly refuses the IM injection of ceftriaxone. He will be discharged home with a prescription for cephalexin. ED return precautions discussed, patient verbalized understanding and agreement with plan. - Vital Signs Vital signs: Temp Pulse Resp BP Pulse Ox 98.2 F 87 18 140/96 H 100 09/22/20 11:40 09/22/20 11:40 09/22/20 11:40 09/22/20 11:40 09/22/20 11:40 - Laboratory Results Critical Laboratory Results Reviewed: No Critical Results - Radiology Results Critical Radiology Results Reviewed: No Critical Results Discharge - Discharge Clinical Impression: Skin ulceration Qualifiers: Non-pressure ulcer stage: unspecified non-pressure ulcer stage Qualified Code(s): L98.499 - Non-pressure chronic ulcer of skin of other sites with unspecified severity Condition: Stable Disposition: HOME, SELF-CARE Additional Instructions: Please take antibiotics exactly as prescribed and complete the entire course even if your symptoms improve. Tylenol or ibuprofen for any pain. Return if any worsening or development of fever. Prescriptions: Cephalexin [Keflex] 500 mg PO QID #28 capsule Referrals: LOCALMD,NO [Primary Care Provider] - Follow up as needed
== END 2020-09-22 12:05 | disposition home or self-care (01) ==
LOC: ER 11:31
DX: L98.499 Non-pressure chronic ulcer of skin of other sites with unspecified severity (principal); A49.1 Streptococcal infection, unspecified site; T36.8X6A Underdosing of other systemic antibiotics, initial encounter; Z91.120 Patient's intentional underdosing of medication regimen due to financial hardship; Z91.14 Patient's other noncompliance with medication regimen; F17.200 Nicotine dependence, unspecified, uncomplicated
CPT/HCPCS: 99283

== ENCOUNTER 2020-10-03 00:54 | Emergency (ER) | payer SELFPAY ==
--- OUTSIDE RECORDS SUMMARY | 2020-10-05 09:18 | XMS REPORT ---
:1985 [facility] [address] [place] [address] Care Team Providers Name Role Phone Andrew MARI Attending Clinician Unavailable Allergies, Adverse Reactions, Alerts This patient has no known allergies or adverse reactions. Medications This patient has no known medications. Problems This patient has no known problems. Procedures This patient has no known procedures. Results This patient has no known results. Encounters Start End Encounter Admission Attending Care Care Encounter Date/Time Date/Time Type Type Clinicians Facility Department ID 2018-05-30 Inpatient JAVIER MARI [id number] 23:58:57 PAZ 4 2019-12-09 2019-12-09 [facility]Patient [facility] [id number] 13:38:08 13:38:08 Payers Payer Name Policy Type Policy Number Effective Date Expiration D ate [id number] Social History This patient has no known social history. Vital Signs This patient has no known vital signs.
== END 2020-10-03 01:15 | disposition left against medical advice (07) ==
LOC: ER 00:54
DX: Z53.21 Procedure and treatment not carried out due to patient leaving prior to being seen by health care provider (principal); R06.02 Shortness of breath; R07.9 Chest pain, unspecified